=== PATIENT | male | born 1955 | race Caucasian/White ===

== ENCOUNTER 2018-06-05 13:55 | Inpatient (IN) | payer MEDICARE, OTHER, SELFPAY ==
[2018-06-05] VITALS (10 sets, daily range): BP systolic 96–124; BP diastolic 51–66; PULSE 82–90; RESP 18–20; TEMP 36.1–37; O2SAT 92–99; BMI 47.9
--- NOTE | 2018-06-05 14:00 | ED.GIBLEED ---
HPI - GI Bleed General Chief complaint: Dizziness Stated complaint: dark stool x2 days Time Seen by Provider: 06/05/18 14:00 Source: patient Mode of arrival: ambulatory Limitations: no limitations History of Present Illness HPI Narrative: Patient is a 62-year-old insulin-dependent diabetic male here for evaluation of black tarry stools for the past couple days and then feeling weak and lightheaded today. Patient states that he also thought that he had 1 episode of coffee-ground emesis yesterday but was unsure about this. States he has never had anything like this before. Has had a colonoscopy in the past. He thinks that his last 1 was about 5 years ago. He states that he was told that he has had polyps. Is taking Naprosyn 2 times a day for an extended period of time. No prior cardiac history or history of blood transfusions Related Data Home Medications Medication Instructions Recorded Confirmed Cranberry/D-Mannose 1 tab PO DAILY 06/05/18 aspirin 81 mg PO DAILY 06/05/18 06/05/18 atorvastatin 80 mg PO DAILY 06/05/18 06/05/18 ferrous sulfate [Iron (ferrous 325 mg PO DAILY 06/05/18 06/05/18 sulfate)] insulin glargine [Lantus Solostar 80 unit SUB-Q DAILY 06/05/18 06/05/18 U-100 Insulin] levothyroxine [Synthroid] 175 mcg PO DAILY 06/05/18 06/05/18 metformin 100 mg PO BID 06/05/18 06/05/18 naproxen 500 mg PO BID PRN 06/05/18 06/05/18 Allergies Allergy/AdvReac Type Severity Reaction Status Date / Time No Known Drug Allergies Allergy Verified 06/05/18 14:02 Review of Systems Constitutional Reports fatigue, Denies fever(s), Denies headache(s) and Reports malaise ENT Ears, Nose, Mouth, and Throat: Denies headache(s) Cardiovascular Denies chest pain, Denies palpitations and Denies dyspnea Respiratory Denies dyspnea Genitourinary Denies dysuria Musculoskeletal Denies myalgias and Denies arthralgias Integumentary/Breasts Denies pruritus and Denies rash Neurologic Denies headache(s) Endocrine Reports fatigue and Denies palpitations Hematologic/Lymphatic Denies easy bleeding and Denies easy bruising [facility] Medical History Diabetes (Acute) Hypothyroid (Acute) Surgical History Hx of appendectomy (Acute) Exam Initial Vital Signs Initial Vital Signs: Vital Signs Temperature 97.0 F L 06/05/18 14:00 Pulse Rate 82 06/05/18 14:00 Respiratory Rate 20 06/05/18 14:00 Pulse Oximetry 94 06/05/18 14:00 Const General: cooperative, comfortable, well developed, well groomed and No acute distress Orientation: alert, awake and oriented x3 HENMT Head: normal to inspection and normocephalic Resp Effort & Inspection: normal respiratory effort Auscultation: clear to auscultation bilaterally Cardio Rate: regular rate Rhythm: regular rhythm Pulses: radial pulses present GI Inspection: non-distended Palpation: soft and No firm Rectal Exam: heme positive stool Skin Lesions: no lesions Rashes: no rashes Other: Pale Neuro General: alert, awake and oriented x3 Extrem General: normal to inspection and capillary refill normal Psych Appearance: grossly normal and well kempt Course Orders Ordered: ED Orders 06/05/18 14:40 Complete Blood Count AUTO DIFF Stat Comprehensive Metabolic Panel Stat Lactate (Lactic Acid) Stat Partial Thromboplastin Time Stat Prothrombin Time INR Stat Type and Screen Stat Pantoprazole Sodium 80 mg/ (Sodium Chloride) 100 mls @ 10 mls/hr IV NOW ONE Stop: 06/06/18 00:16 Last Admin: 06/05/18 14:36 Dose: Not Given Pantoprazole Sodium 80 mg/ (Sodium Chloride) 100 mls @ 10 mls/hr IV CONT DENNIS Last Admin: 06/05/18 14:33 Dose: 8 mg/hr, 10 mls/hr Vital Signs - 8 hr 06/05/18 14:00 06/05/18 15:06 06/05/18 15:46 Temperature 97.0 F L Pulse Rate 82 87 Respiratory Rate 20 20 Blood Pressure [Left Wrist] 96/52 L 108/55 L Pulse Oximetry 94 92 MDM - GI Bleed Lab Data Attestation: I reviewed the patient's lab results. Result diagrams: 06/05/18 14:40 06/05/18 14:40 Lab Results 06/05/18 06/05/18 06/05/18 Range/Units 14:40 14:40 14:40 WBC 8.7 (4.5-11.0) X10^3/uL RBC 2.76 L (4.5-5.9) X10^6/uL Hgb 8.5 L (13.5-17.5) g/dL Hct 25.2 L (41-53) % MCV 91.5 (80-100) fL MCH 30.7 (26-34) PG MCHC 33.6 (30-36) % RDW 15.2 H (11.6-14.8) % Plt Count 122 L (150-400) X10^3/uL Neut % (Auto) 71.5 (50-75) % Lymph % (Auto) 17.7 L (25-40) % Garza % (Auto) 9.1 (3-14) % Eos % (Auto) 0.7 L (2-4) % Baso % (Auto) 1.0 (0-2) % Neut # (Auto) 6200 H (0268-4785) /uL PT 14.4 H (10.1-12.7) SECONDS INR 1.3 (0.9-1.3) APTT 25 L (26.4-36.2) SECONDS Sodium 135 L (137-145) mmol/L Potassium 6.0 H (3.4-5.1) mmol/L Chloride 99 (98-107) mmol/L Carbon Dioxide 22 (22-32) mmol/L BUN 88 H (9-20) mg/dL Creatinine 1.50 H (0.66-1.25) mg/dL Estimated GFR 47.1 L (>60) mL/min BUN/Creatinine Ratio 58.7 H (6-22) Glucose 483 H (80-110) mg/dL Lactate (0.7-2.1) mmol/L Calcium 9.1 (8.4-10.2) mg/dL Total Bilirubin 0.7 (0.2-1.3) mg/dL AST 34 (17-59) IU/L ALT 28 (21-72) IU/L Alkaline Phosphatase 59 (38-126) U/L Total Protein 5.5 L (6.3-8.2) g/dL Albumin 3.0 L (3.5-5.0) g/dL Globulin 2.5 (1.7-4.1) g/dL Albumin/Globulin Ratio 1.2 (1.0-2.8) 06/05/18 Range/Units 14:40 WBC (4.5-11.0) X10^3/uL RBC (4.5-5.9) X10^6/uL Hgb (13.5-17.5) g/dL Hct (41-53) % MCV (80-100) fL MCH (26-34) PG MCHC (30-36) % RDW (11.6-14.8) % Plt Count (150-400) X10^3/uL Neut % (Auto) (50-75) % Lymph % (Auto) (25-40) % Garza % (Auto) (3-14) % Eos % (Auto) (2-4) % Baso % (Auto) (0-2) % Neut # (Auto) (2643-4998) /uL PT (10.1-12.7) SECONDS INR (0.9-1.3) APTT (26.4-36.2) SECONDS Sodium (137-145) mmol/L Potassium (3.4-5.1) mmol/L Chloride (98-107) mmol/L Carbon Dioxide (22-32) mmol/L BUN (9-20) mg/dL Creatinine (0.66-1.25) mg/dL Estimated GFR (>60) mL/min BUN/Creatinine Ratio (6-22) Glucose (80-110) mg/dL Lactate 5.3 H (0.7-2.1) mmol/L Calcium (8.4-10.2) mg/dL Total Bilirubin (0.2-1.3) mg/dL AST (17-59) IU/L ALT (21-72) IU/L Alkaline Phosphatase (38-126) U/L Total Protein (6.3-8.2) g/dL Albumin (3.5-5.0) g/dL Globulin (1.7-4.1) g/dL Albumin/Globulin Ratio (1.0-2.8) MDM Narrative Medical decision making narrative: Patient with heme-positive stools. Also anemic. Patient is somewhat hypotensive but he states that this is baseline for him. He does have pale skin. Has a very benign abdominal exam. No cardiac history. Was started on Protonix here in the ER. Does have an elevated lactate. Was also getting fluids. Discussed the case with Dr. Eduardo who was on-call for General surgery who states that patient needs to be medically managed 1st. Discussed the case with Dr. Calvillo who accepts patient for admission. Patient is also hyperglycemic however no signs of DKA. This appears to be normal for him could see states that him and his provider have had problems maintaining his blood sugars. I discussed admission with the patient. He expressed understanding and agreement with plan. Discharge Plan Departure Patient Disposition: Admitted As Inpatient Clinical Impression: GI bleed, Hyperglycemia, Anemia Admit Date/Time: 06/05/18 15:56 Admit Provider: Jona Rojas
[2018-06-05] MEDS: PANTOPRAZOLE 80 MG in SODIUM CHLORIDE 0.9% 100 ML 10 ML IV (14:33)
[2018-06-05 14:57] LABS: Add Manual Diff / Slide Review NO; Eosinophils Percent Auto 0.7 % (2-4); Hematocrit 25.2 % (41-53); Hemoglobin 8.5 g/dL (13.5-17.5); Lymphocytes Percent Auto 17.7 % (25-40); Mean Corpuscular HGB Conc 33.6 % (30-36); Mean Corpuscular Hemoglobin 30.7 PG (26-34); Mean Corpuscular Volume 91.5 fL (80-100); Monocytes Percent Auto 9.1 % (3-14); Neutrophils Absolute Auto 6200 /uL (3000-5900); Neutrophils Percent Auto 71.5 % (50-75); Platelet Count 122 X10^3/uL (150-400); Red Blood Cell Count 2.76 X10^6/uL (4.5-5.9); Red Cell Distribution Width 15.2 % (11.6-14.8); White Blood Cell Count 8.7 X10^3/uL (4.5-11.0)
[2018-06-05 15:03] LABS: INR 1.3 (0.9-1.3); Prothrombin Time 14.4 SECONDS (10.1-12.7)
[2018-06-05 15:05] LABS: PTT Partial Thromboplastin Tim 25 SECONDS (26.4-36.2)
[2018-06-05 15:15] LABS: Lactate (Lactic Acid) 5.3 mmol/L (0.7-2.1)
[2018-06-05 15:16] LABS: Alanine Aminotransferase 28 IU/L (21-72); Albumin Globulin Ratio 1.2 (1.0-2.8); Alkaline Phosphatase 59 U/L (38-126); Aspartate Aminotransferase 34 IU/L (17-59); BUN Creatinine Ratio 58.7 (6-22); Bilirubin Total 0.7 mg/dL (0.2-1.3); Blood Urea Nitrogen 88 mg/dL (9-20); Calcium 9.1 mg/dL (8.4-10.2); Carbon Dioxide 22 mmol/L (22-32); Chloride 99 mmol/L (98-107); Estimated Glomerular Filt Rate 47.1 mL/min (>60); Globulin 2.5 g/dL (1.7-4.1); Glucose 483 mg/dL (80-110); HEMOLYSIS < 15 (0-50); Sodium 135 mmol/L (137-145); Total Protein 5.5 g/dL (6.3-8.2)
--- NOTE | 2018-06-05 16:56 | PM.HP.1 ---
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[facility] came to the ER because of 2 days history of black stools he also had an episode of coffee-ground emesis last night He has had water drinker since then but has no further emesis does not complain of any abdominal pain fever chills or rigors He was on Lantus and [place] but the [facility] but decided to go for cheaper medication and and he ended up with poor control of his diabetes according to him No cough phlegm or shortness of breath no chest pain reported Patient History Medical History Diabetes (Acute) Hypothyroid (Acute) Surgical History Hx of appendectomy (Acute) Family & Social History Family History: Reviewed 06/05/18 by Jona Rojas MD Social History: Lives alone was in the past not anymore Safety & Behavioral: Does not smoke tobacco or drink alcohol Comment: Both his parents are now father at the age of 47 with valvular heart problem mother at the age of 69 with cancer of the lymph node sister of an aortic aneurysm Meds Home Medications Medication Instructions Recorded Confirmed Type Cranberry/D-Mannose 1 tab PO DAILY 06/05/18 History aspirin 81 mg PO DAILY 06/05/18 06/05/18 History atorvastatin 80 mg PO DAILY 06/05/18 06/05/18 History ferrous sulfate [Iron (ferrous 325 mg PO DAILY 06/05/18 06/05/18 History sulfate)] insulin glargine [Lantus Solostar 80 unit SUB-Q DAILY 06/05/18 06/05/18 History U-100 Insulin] levothyroxine [Synthroid] 175 mcg PO DAILY 06/05/18 06/05/18 History metformin 100 mg PO BID 06/05/18 06/05/18 History naproxen 500 mg PO BID PRN 06/05/18 06/05/18 History Allergies Allergy/AdvReac Type Severity Reaction Status Date / Time No Known Drug Allergies Allergy Verified 06/05/18 14:02 Review of Systems Review of Systems A 12 point review of system was negative for any acute symptoms other than the 1 in the present complaint Exam Vital Signs (past 8 hours): - 06/05/18 14:00 06/05/18 15:06 06/05/18 15:46 Temperature 97.0 F L Pulse Rate 82 87 Respiratory Rate 20 20 Blood Pressure [Left Wrist] 96/52 L 108/55 L Pulse Oximetry 94 92 06/05/18 16:37 Temperature Pulse Rate 90 Respiratory Rate 20 Blood Pressure [Left Wrist] 105/56 L Pulse Oximetry 97 Oxygen Delivery Method Room Air Const General: cooperative, healthy appearing, comfortable and well developed Nutritional Appearance: overweight Orientation: alert, awake and oriented x3 HENMT Head: normal to inspection, normocephalic and atraumatic Ears: hearing grossly normal bilaterally Nose: external nose normal Face and sinus: normal facial exam Mouth: oral mucosae normal Eyes Eyelids: eyelids normal Conjunctivae: conjunctivae normal Sclera: sclerae normal EOM: EOM intact bilaterally Neck Neck: normal visual inspection, full ROM and No JVD Thyroid: thyroid normal Resp Effort & Inspection: normal respiratory effort, able to speak in complete sentences, no respiratory distress and no use of accessory muscles Auscultation: clear to auscultation bilaterally Cardio Palpation: normal PMI Rate: regular rate Rhythm: regular rhythm Heart Sounds: S1 normal and S2 normal GI Inspection: normal to inspection Palpation: soft and no hepatosplenomegaly Skin General: no rashes or lesions noted Neuro General: alert, awake, oriented x3 and no meningeal signs Cranial Nerves: CN's II-XI intact bilaterally Cognition: normal cognition Speech: speech normal Motor: muscle tone normal throughout Extrem Other: ELLIE; LE CHRONIC STASIS DERMATITIS PRESENT RT LE SHINY SKIN MINIMAL REDNESS Psych Appearance: grossly normal Mood: congruent mood Affect: normal affect Attitude: cooperative Thought Process: normal Thought Content: normal Judgment: judgment good Objective Labs Result Diagrams: 06/05/18 14:40 06/05/18 14:40 Labs: Laboratory Results - last 24 hr 06/05/18 06/05/18 06/05/18 14:40 14:40 14:40 WBC 8.7 RBC 2.76 L Hgb 8.5 L Hct 25.2 L MCV 91.5 MCH 30.7 MCHC 33.6 RDW 15.2 H Plt Count 122 L Neut % (Auto) 71.5 Lymph % (Auto) 17.7 L [facility] % (Auto) 9.1 Eos % (Auto) 0.7 L Baso % (Auto) 1.0 Neut # (Auto) 6200 H PT 14.4 H INR 1.3 APTT 25 L Sodium 135 L Potassium 6.0 H Chloride 99 Carbon Dioxide 22 BUN 88 H Creatinine 1.50 H Estimated GFR 47.1 L BUN/Creatinine Ratio 58.7 H Glucose 483 H Lactate Calcium 9.1 Total Bilirubin 0.7 AST 34 ALT 28 Alkaline Phosphatase 59 Total Protein 5.5 L Albumin 3.0 L Globulin 2.5 Albumin/Globulin Ratio 1.2 Blood Type Antibody Screen 06/05/18 06/05/18 14:40 14:40 WBC RBC Hgb Hct MCV MCH MCHC RDW Plt Count Neut % (Auto) Lymph % (Auto) [facility] % (Auto) Eos % (Auto) Baso % (Auto) Neut # (Auto) PT INR APTT Sodium Potassium Chloride Carbon Dioxide BUN Creatinine Estimated GFR BUN/Creatinine Ratio Glucose Lactate 5.3 H Calcium Total Bilirubin AST ALT Alkaline Phosphatase Total Protein Albumin Globulin Albumin/Globulin Ratio Blood Type A Positive Antibody Screen Negative Assessment & Plan Plan: Assessment/Plan Narrative: 1. ACUTE POST HEMORRHAGIC ANEMIA UPPER GI BLEEDING WITH A HEMOGLOBIN OF 8.5 NOW WILL MONITOR THE HEMOGLOBIN Q.6 HOURS HOURLY AND TRANSFUSE IF IT IS BELOW 7 DR. MASR FROM GENERAL SURGERY HAS BEEN INFORMED FROM THE ER AND WILL DO ENDOSCOPY ONCE THE METABOLIC CHANGES OF BEING CORRECTED 2. DIABETES MELLITUS UNCONTROLLED SUGAR 480 IN ER NOT IN ANY DISTRESS NO DKA WILL USE IV INSULIN ONCE AND THEN SUBCUTANEOUS INSULIN BOTH BASAL AND BOLUS 3. HYPERKALEMIA POTASSIUM OF 6.0 TREAT WITH CALCIUM GLUCONATE AND IV BICARB 4. AZOTEMIA WITH A BUN OF 88 MOST LIKELY SECONDARY TO GI BLEED 5. ACUTE KIDNEY INJURY CREATININE 1.6 WILL CORRECT WITH IV HYDRATION 6. LACTIC ACIDOSIS URINE BEING CHECKED FOR YOU URINARY TRACT INFECTION RIGHT LOWER EXTREMITY MAY BE EARLY CELLULITIS WILL START THE ZOSYN 7. OBESITY Time Spent With Patient Time with patient: Greater than 35 minutes
--- NOTE | 2018-06-05 18:05 | P.CONS_ITS ---
History of Present Illness Date Patient Seen: 06/05/18 Time Patient Seen: 17:49 Chief complaint: dark stool x2 days Reason for consult: Melena Requesting provider: Jona Rojas Narrative: 62-year-old diabetic morbidly obese male who presented to the emergency department with some lightheadedness over the last 24-48 hours and 2 day history of associated melena. He also had 1 episode yesterday evening of hematemesis that he describes as coffee-ground in nature. No nausea or vomiting prior or since that episode. He has not had any stool today. However , he describes his stool in the last 2 days as black and tarry. He has had no abdominal pain. No diarrhea. No difficulties with defecation. No pain with passage of stool. Denies any dysuria or hematuria. His appetite has been normal and he was tolerating a diet without any significant issues. Of note, he takes scheduled Naprosyn at twice daily for shoulder pain and has done so for a considerable time now. He also takes baby aspirin once daily. Denies any other NSAID use. He admits that his diabetes has been poorly controlled since changing his medication regimen in recent months. He has had some mild polydipsia over the last 2-3 days. Denies any prior episodes of gastrointestinal hemorrhage although he does have documented anemia in 2015 for which she underwent extensive evaluation including bone marrow biopsy. Prior EGD and colonoscopy in 2014 were essentially unremarkable as well other than tubular adenoma in the colon and mild gastritis. He was found to be significantly anemic in the emergency department this afternoon and surgical consultation is now obtained. 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) Osteoarthritis (Acute) Personal history of colonic polyps (Acute) Splenomegaly (Acute) Symptomatic anemia (Acute) Surgical History H/O transurethral destruction of bladder lesion (Acute) History of bone marrow biopsy (Acute) History of colonoscopy (Acute) History of esophagogastroduodenoscopy (EGD) (Acute) Hx of appendectomy (Acute) Social History household members: none Smoking Status: Former smoker alcohol intake: never Comment: Nonsmoker Primary care received through the [facility] Medications Medication Instructions Recorded Confirmed Type Cranberry/D-Mannose 1 tab PO DAILY 06/05/18 History aspirin 81 mg PO DAILY 06/05/18 06/05/18 History atorvastatin 80 mg PO DAILY 06/05/18 06/05/18 History ferrous sulfate [Iron (ferrous 325 mg PO DAILY 06/05/18 06/05/18 History sulfate)] insulin glargine [Lantus Solostar 80 unit SUB-Q DAILY 06/05/18 06/05/18 History U-100 Insulin] levothyroxine [Synthroid] 175 mcg PO DAILY 06/05/18 06/05/18 History metformin 100 mg PO BID 06/05/18 06/05/18 History naproxen 500 mg PO BID PRN 06/05/18 06/05/18 History Allergies Allergy/AdvReac Type Severity Reaction Status Date / Time No Known Drug Allergies Allergy Verified 06/05/18 14:02 Review of Systems Constitutional Constitutional: Denies chills, Denies fever(s), Denies poor appetite, Denies weight gain and Denies weight loss Eyes Eyes: Denies irritation, Denies itchy eyes and Denies other visual disturbances ENT Ears, Nose, Mouth, and Throat: No difficulty swallowing, Yes dizziness and No pain with swallowing Cardiovascular Cardiovascular: Denies chest pain with activity, Denies rapid, pounding, or irregular heartbeat and Denies shortness of breath Respiratory Respiratory: Denies dyspnea and Denies wheezing Gastrointestinal Gastrointestinal: Reports as per HPI, Denies dysphagia and Denies odynophagia Genitourinary Genitourinary: Reports as per HPI Musculoskeletal Musculoskeletal: Reports arthralgias (Chronic shoulder pain), Reports joint swelling and Denies tingling Integumentary/Breasts Skin/Breast: Denies rash, Denies skin ulcer and Denies jaundice Neurologic Neurologic: Reports dizziness and Denies tingling Psychiatric Psychiatric: Denies anxiety and Denies depression Endocrine Endocrine: Reports polydipsia, Denies palpitations and Reports other (Known diabetes) Hematologic/Lymphatic Hematologic/Lymphatic: Denies easy bleeding and Denies easy bruising Allergic/Immunologic Allergic/Immunologic: Denies itchy eyes and Denies wheezing Exam Vital Signs (past 8 hours): - 06/05/18 14:00 06/05/18 15:06 06/05/18 15:46 Temperature 97.0 F L Pulse Rate 82 87 Respiratory Rate 20 20 Blood Pressure [Left Wrist] 96/52 L 108/55 L Pulse Oximetry 94 92 06/05/18 16:37 06/05/18 17:19 Temperature Pulse Rate 90 83 Respiratory Rate 20 18 Blood Pressure [Left Wrist] 105/56 L 108/52 L Pulse Oximetry 97 95 Oxygen Delivery Method Room Air Narrative Exam Narrative: Obese male lying comfortably on the gurney in the emergency department in no acute distress. Alert oriented x3 Sclera nonicteric Neck is supple Regular rate and rhythm Abdomen is obese but soft and completely nondistended. Nontender. No masses. No hepatomegaly. Extremities show no clubbing or cyanosis. Has chronic hyperpigmentation of bilateral pretibial areas almost circumferentially around the calves consistent with diabetes and venous insufficiency. Rectal examination is deferred per patient choice. Colonoscopy was performed 2014 with findings as above. Objective Labs Result Diagrams: 06/05/18 14:40 06/05/18 14:40 Labs: Laboratory Results - last 24 hr 06/05/18 06/05/18 06/05/18 14:40 14:40 14:40 WBC 8.7 RBC 2.76 L Hgb 8.5 L Hct 25.2 L MCV 91.5 MCH 30.7 MCHC 33.6 RDW 15.2 H Plt Count 122 L Neut % (Auto) 71.5 Lymph % (Auto) 17.7 L [place] % (Auto) 9.1 Eos % (Auto) 0.7 L Baso % (Auto) 1.0 Neut # (Auto) 6200 H PT 14.4 H INR 1.3 APTT 25 L Sodium 135 L Potassium 6.0 H Chloride 99 Carbon Dioxide 22 BUN 88 H Creatinine 1.50 H Estimated GFR 47.1 L BUN/Creatinine Ratio 58.7 H Glucose 483 H Lactate Calcium 9.1 Total Bilirubin 0.7 AST 34 ALT 28 Alkaline Phosphatase 59 Total Protein 5.5 L Albumin 3.0 L Globulin 2.5 Albumin/Globulin Ratio 1.2 Blood Type Antibody Screen 06/05/18 06/05/18 14:40 14:40 WBC RBC Hgb Hct MCV MCH MCHC RDW Plt Count Neut % (Auto) Lymph % (Auto) [place] % (Auto) Eos % (Auto) Baso % (Auto) Neut # (Auto) PT INR APTT Sodium Potassium Chloride Carbon Dioxide BUN Creatinine Estimated GFR BUN/Creatinine Ratio Glucose Lactate 5.3 H Calcium Total Bilirubin AST ALT Alkaline Phosphatase Total Protein Albumin Globulin Albumin/Globulin Ratio Blood Type A Positive Antibody Screen Negative No recent radiographic studies review. Study of December [address] scan of the abdomen and pelvis is personally reviewed. Findings are consistent with steatosis and splenomegaly as above. No lymphadenopathy at that time. Assessment & Plan Plan: Assessment/Plan Narrative: 62-year-old male with multiple comorbid medical conditions who presents with probable upper gastrointestinal hemorrhage likely related to NSAID use. He currently has no evidence of significant active hemorrhage or hemodynamic instability. He will therefore be admitted per the internal medicine service for IV fluid resuscitation, correction of his acidosis, and aggressive diabetic control. Continue to monitor his H&H. Transfuse as indicated. Agree that he will require EGD at some point this admission once he is more stable and fully resuscitated. He understands that there is a small possibility we may have to do this emergently if he begins to have significant active hemorrhage. In the interim he has been placed on proton pump inhibitor infusion. NPO currently. I discussed the technical details of EGD. He is familiar with the procedure from 2014. All questions were answered to his satisfaction, and he voiced understanding. We will continue to follow him during this admission.
[2018-06-05] MEDS: INSULIN ASPART 100 UNIT/ML INSULN PEN 15 UNIT SUBCUT (18:17)
[2018-06-05 18:51] LABS: Reflexed Lactate in 2 Hours Y
[2018-06-05 18:58] LABS: Hematocrit 25.4 % (41-53); Hemoglobin 8.4 g/dL (13.5-17.5)
[2018-06-05] MEDS: SODIUM CHLORIDE 0.45% IV (19:01)
[2018-06-05] MEDS: SODIUM BICARB IV (19:01)
[2018-06-05] MEDS: PIPERACILLIN-TAZO 3.375 GM/50 ML FROZ.PIGGY IV (19:08)
[2018-06-05 19:13] LABS: Lactate 2HR (Lactic Acid Rflx) 4.8 mmol/L (0.7-2.1)
--- NOTE | 2018-06-05 19:44 | PC.NURSE ---
patient up to room via stretcher, iv meds infusing as ordered. o2 sat is 95% on 1L with cpap machine. lung sounds clear, heart sounds regular, bowel tones present. patient denies nausea, dizziness, sob. patient denies pain; states he normally deals with chronic shoulder pain and takes naproxen at home. patient had black tarry, formed stool in br and voided successfully. skin is intact, patient denies tingling or numbness. patient is a&ox4. patient able to ambulate to br sba without walker. blood glucose at 1800 was over 500 on glucometer, gave 15 units one time now as ordered, rechecked 45 minutes later and glucose was still over 500, ordered stat lab check per protocol. reported all this to Dr. Calvillo; asked this RN to call back with exact number once done. patient oriented to room, is NPO at this time. call light in reach. will continue to monitor.
[2018-06-05 20:22] LABS: Glucose 516 mg/dL (80-110)
[2018-06-05] MEDS: CALCIUM GLUCONATE 4.65 MEQ in SODIUM CHLORIDE 0.9% 50 ML 120 ML IV (20:30)
[2018-06-05] MEDS: SODIUM CHLORIDE 0.9% 500 ML 1000 ML IV (21:18)
[2018-06-05] MEDS: INSULIN REGULAR, HUMAN 100 UNIT in SODIUM CHLORIDE 0.9% 100 ML 6 ML IV (21:20)
--- NOTE | 2018-06-05 22:33 | PC.NURSE ---
Pt transfer from Acute care. Finger stick >452. Protonix gtt, NS bolus and Bi-carb infusing. Pt c/o only of chronic Right shoulder pain. Offered pillow for comfort. Oriented to room and treatment plan. Maria Del Rosario Sullivan attempt to draw second blood culture and lipase as ordered. Unable to obtain adequate amount of blood for sampling. 2 PIV sites to right forearm fluids infusing as ordered. Call light in reach. Monitor. 2129 - Insulin gtt initiated once obtained from night pharmacy at 6 units/hr as ordered. 2199 - Dr. Calvillo called to review pt orders. Orders written on physician order form, variation in orders following lab results. BG per finger stick >485. Insulin gtt at 6 units/hr, not titrated on this check r/t 2129 gtt start time. Monitor.
[2018-06-06] VITALS (8 sets, daily range): BP systolic 106–123; BP diastolic 47–50; PULSE 72–91; RESP 15–20; TEMP 36.3–37.1; O2SAT 94–97
[2018-06-06] MEDS: PANTOPRAZOLE 80 MG in SODIUM CHLORIDE 0.9% 100 ML 10 ML IV ×2 (00:02→22:24)
[2018-06-06] MEDS: ACETAMINOPHEN 325 MG TABLET 650 MG PO (00:36)
[2018-06-06] MEDS: PIPERACILLIN-TAZO 3.375 GM/50 ML FROZ.PIGGY IV ×4 (00:36→19:20)
[2018-06-06 00:56] LABS: Hematocrit 23.2 % (41-53); Hemoglobin 7.8 g/dL (13.5-17.5)
[2018-06-06 00:57] LABS: HEMOLYSIS < 15 (0-50); Potassium 4.9 mmol/L (3.4-5.1)
[2018-06-06] MEDS: INSULIN REGULAR, HUMAN 100 UNIT in SODIUM CHLORIDE 0.9% 100 ML 24 ML IV (03:14)
[2018-06-06] MEDS: DEXTROSE 5%-0.45% NS 1,000 ML 75 ML IV (05:36)
[2018-06-06] MEDS: LEVOTHYROXINE 75 MCG TABLET PO (06:42)
[2018-06-06] MEDS: LEVOTHYROXINE 100 MCG TABLET PO (06:42)
--- NOTE | 2018-06-06 06:56 | PC.NURSE ---
Patient A/O x3, insulin gtt continued through night, started at 12units/hr, increased to 28units/hr, then able to titrate down to 7units/hr by am, see flow sheet. Bicarb infused until 0500 then changed to D5 1/2NS per order when BG < 200. Protonix gtt, IV Zosyn per schedule. No s/s bleeding, no nausea, Tylenol given with sip for chronic shoulder pain.
[2018-06-06 07:01] LABS: Hematocrit 23.2 % (41-53); Hemoglobin 7.9 g/dL (13.5-17.5)
[2018-06-06 07:05] LABS: Alanine Aminotransferase 35 IU/L (21-72); Albumin Globulin Ratio 1.2 (1.0-2.8); Alkaline Phosphatase 57 U/L (38-126); Aspartate Aminotransferase 30 IU/L (17-59); BUN Creatinine Ratio 55.6 (6-22); Bilirubin Total 0.5 mg/dL (0.2-1.3); Blood Urea Nitrogen 89 mg/dL (9-20); Calcium 9.5 mg/dL (8.4-10.2); Carbon Dioxide 28 mmol/L (22-32); Chloride 106 mmol/L (98-107); Estimated Glomerular Filt Rate 43.7 mL/min (>60); Globulin 2.6 g/dL (1.7-4.1); Glucose 162 mg/dL (80-110); HEMOLYSIS < 15 (0-50); Lipase 181 U/L (23-300); Potassium 4.6 mmol/L (3.4-5.1); Sodium 142 mmol/L (137-145); Total Protein 5.6 g/dL (6.3-8.2)
[2018-06-06] MEDS: INSULIN GLARGINE 100 UNIT/ML 3ML PEN 40 UNIT SUBCUT ×2 (08:50→08:56)
--- NOTE | 2018-06-06 08:57 | PC.NURSE ---
Addendum entered by Isabela Becker R.N. 06/06/18 11:40: Dr Calvillo called to inform of patients 1130 blood glucose of 236, per MD request. Continue with the ordered sliding scale and keep insulin drip off at this time. Original Note: Addendum entered by Isabela Becker R.N. 06/06/18 10:05: Blood glucose finger stick 188, insulin drip stopped as ordered. Original Note: Pt alert, oriented up to chair, gait steady. Dr Calvillo in to see patient, given 80 units of lantus as ordered and will discontinue insulin drip in an hour as ordered.
[2018-06-06 08:58] LABS: Lactate (Lactic Acid) 2.6 mmol/L (0.7-2.1)
[2018-06-06] MEDS: DEXTROSE 5%-0.45NS W/KCL 20MEQ 1,000 ML 75 MEQ IV (09:35)
[2018-06-06] MEDS: INSULIN ASPART 100 UNIT/ML INSULN PEN SUBCUT ×2 (11:45→18:06)
[2018-06-06] MEDS: PANTOPRAZOLE 80 MG in SODIUM CHLORIDE 0.9% 100 ML 12.5 ML IV (12:12)
[2018-06-06 12:37] LABS: Reflexed Lactate in 2 Hours Y
[2018-06-06 13:31] LABS: Hematocrit 23.7 % (41-53); Hemoglobin 7.7 g/dL (13.5-17.5)
[2018-06-06 13:38] LABS: BUN Creatinine Ratio 62.3 (6-22); Blood Urea Nitrogen 81 mg/dL (9-20); Calcium 9.1 mg/dL (8.4-10.2); Carbon Dioxide 30 mmol/L (22-32); Chloride 105 mmol/L (98-107); Estimated Glomerular Filt Rate 55.6 mL/min (>60); Glucose 245 mg/dL (80-110); HEMOLYSIS 27 (0-50); Sodium 142 mmol/L (137-145)
[2018-06-06 13:41] LABS: Potassium 5.4 mmol/L (3.4-5.1)
--- NOTE | 2018-06-06 14:10 | P.PN_ITS ---
Subjective Date Patient Seen: 06/06/18 Time Patient Seen: 14:09 Interval history: THIS 62-YEAR-OLD GENTLEMAN IS ADMITTED FROM HOME WITH A HISTORY OF MELENA STOOLS FOR 1 DAY HE ALSO HAD A HEMATEMESIS ON 1 OCCASION FOLLOWING THAT HE HAS BEEN DRINKING WATER AND HAS NOT HAD ANY FURTHER EMESIS HE ALSO HAS DIABETES IS DIFFICULT TO CONTROL HAS BEEN ON LARGE DOSES OF INSULIN THE CHARGE GROUP THAT HELPS HIM WITH HIS MEDICATION COST TRY TO GET HIM ON A LONG-ACTING INSULIN THAT IS TAKEN ON A WEEKLY BASIS BUT SINCE HE HAD THAT HIS BLOOD SUGARS HAVE GONE REALLY HIGH AND YESTERDAY IN THE IN THE ER WAS 516 HE HAS BEEN TREATED WITH IV INSULIN INFUSION AND HIS METABOLIC ABNORMALITIES HAVE BEEN CORRECTED HE HAD HYPERKALEMIA AND LACTIC ACIDOSIS AZOTEMIA LIKELY SECONDARY TO THE GI BLEED OVERALL HE REPORTS FEELING MUCH BETTER TODAY Exam Vital Signs (past 8 hours): - 06/06/18 07:38 06/06/18 09:29 06/06/18 11:42 Temperature 97.8 F 97.7 F Pulse Rate 75 82 Respiratory Rate 15 16 Blood Pressure 123/47 H 117/50 L Pulse Oximetry 94 97 97 Fraction of Inspired Oxygen 24 Oxygen Delivery Method Room Air Oxygen Flow Rate 0 Const General: cooperative, healthy appearing, comfortable and well developed Orientation: alert, awake and oriented x3 HENMT Head: normal to inspection, normocephalic and atraumatic Ears: hearing grossly normal bilaterally Nose: external nose normal Face and sinus: normal facial exam Mouth: oral mucosae normal Eyes General: appearance normal, both eyes and all related structures Eyelids: eyelids normal Conjunctivae: conjunctivae normal Sclera: sclerae normal Pupils: PERRL EOM: EOM intact bilaterally Neck Neck: normal visual inspection, full ROM and No JVD Resp Effort & Inspection: normal respiratory effort, able to speak in complete sentences, decreased respiratory effort, no respiratory distress and no use of accessory muscles Auscultation: clear to auscultation bilaterally Cardio Palpation: normal PMI Rate: regular rate Rhythm: regular rhythm Heart Sounds: S1 normal and S2 normal GI Inspection: normal to inspection Palpation: soft and no hepatosplenomegaly Skin General: no rashes or lesions noted Neuro General: alert, awake and oriented x3 Cranial Nerves: CN's II-XI intact bilaterally Cognition: normal cognition Speech: speech normal Gait: normal gait Motor: muscle tone normal throughout Extrem Other: NIL EDEMA Psych Appearance: grossly normal Mood: congruent mood Affect: normal affect Attitude: cooperative Thought Process: normal Thought Content: normal Judgment: judgment good Objective Labs Result Diagrams: 06/06/18 13:15 06/06/18 13:15 Labs: Laboratory Results - last 24 hr 06/05/18 06/05/18 06/05/18 14:40 14:40 14:40 WBC 8.7 RBC 2.76 L Hgb 8.5 L Hct 25.2 L MCV 91.5 MCH 30.7 MCHC 33.6 RDW 15.2 H Plt Count 122 L Neut % (Auto) 71.5 Lymph % (Auto) 17.7 L [place] % (Auto) 9.1 Eos % (Auto) 0.7 L Baso % (Auto) 1.0 Neut # (Auto) 6200 H PT 14.4 H INR 1.3 APTT 25 L Sodium 135 L Potassium 6.0 H Chloride 99 Carbon Dioxide 22 BUN 88 H Creatinine 1.50 H Estimated GFR 47.1 L BUN/Creatinine Ratio 58.7 H Glucose 483 H Lactate Calcium 9.1 Total Bilirubin 0.7 AST 34 ALT 28 Alkaline Phosphatase 59 Total Protein 5.5 L Albumin 3.0 L Globulin 2.5 Albumin/Globulin Ratio 1.2 Lipase Nasal Screen MRSA (PCR) Blood Type Antibody Screen 06/05/18 06/05/18 06/05/18 14:40 14:40 18:00 WBC RBC Hgb Hct MCV MCH MCHC RDW Plt Count Neut % (Auto) Lymph % (Auto) Cr[place] % (Auto) Eos % (Auto) Baso % (Auto) Neut # (Auto) PT INR APTT Sodium Potassium Chloride Carbon Dioxide BUN Creatinine Estimated GFR BUN/Creatinine Ratio Glucose Lactate 5.3 H 4.8 H Calcium Total Bilirubin AST ALT Alkaline Phosphatase Total Protein Albumin Globulin Albumin/Globulin Ratio Lipase Nasal Screen MRSA (PCR) Blood Type A Positive Antibody Screen Negative 06/05/18 06/05/18 06/05/18 18:40 18:40 20:50 WBC RBC Hgb 8.4 L Hct 25.4 L MCV MCH MCHC RDW Plt Count Neut % (Auto) Lymph % (Auto) [place] % (Auto) Eos % (Auto) Baso % (Auto) Neut # (Auto) PT INR APTT Sodium Potassium Chloride Carbon Dioxide BUN Creatinine Estimated GFR BUN/Creatinine Ratio Glucose 516 H* Lactate Calcium Total Bilirubin AST ALT Alkaline Phosphatase Total Protein Albumin Globulin Albumin/Globulin Ratio Lipase Nasal Screen MRSA (PCR) Negative for mrsa Blood Type Antibody Screen 06/06/18 06/06/18 06/06/18 00:42 00:42 06:35 WBC RBC Hgb 7.8 L 7.9 L Hct 23.2 L 23.2 L MCV MCH MCHC RDW Plt Count Neut % (Auto) Lymph % (Auto) [place] % (Auto) Eos % (Auto) Baso % (Auto) Neut # (Auto) PT INR APTT Sodium Potassium 4.9 Chloride Carbon Dioxide BUN Creatinine Estimated GFR BUN/Creatinine Ratio Glucose Lactate Calcium Total Bilirubin AST ALT Alkaline Phosphatase Total Protein Albumin Globulin Albumin/Globulin Ratio Lipase Nasal Screen MRSA (PCR) Blood Type Antibody Screen 06/06/18 06/06/18 06/06/18 06:35 08:30 13:15 WBC RBC Hgb 7.7 L Hct 23.7 L MCV MCH MCHC RDW Plt Count Neut % (Auto) Lymph % (Auto) [place] % (Auto) Eos % (Auto) Baso % (Auto) Neut # (Auto) PT INR APTT Sodium 142 Potassium 4.6 Chloride 106 Carbon Dioxide 28 BUN 89 H Creatinine 1.60 H Estimated GFR 43.7 L BUN/Creatinine Ratio 55.6 H Glucose 162 H D Lactate 2.6 H Calcium 9.5 Total Bilirubin 0.5 AST 30 ALT 35 Alkaline Phosphatase 57 Total Protein 5.6 L Albumin 3.0 L Globulin 2.6 Albumin/Globulin Ratio 1.2 Lipase 181 Nasal Screen MRSA (PCR) Blood Type Antibody Screen 06/06/18 06/06/18 13:15 13:15 WBC RBC Hgb Hct MCV MCH MCHC RDW Plt Count Neut % (Auto) Lymph % (Auto) [place] % (Auto) Eos % (Auto) Baso % (Auto) Neut # (Auto) PT INR APTT Sodium 142 Potassium 5.4 H Chloride 105 Carbon Dioxide 30 BUN 81 H Creatinine 1.30 H Estimated GFR 55.6 L BUN/Creatinine Ratio 62.3 H Glucose 245 H Lactate 2.0 Calcium 9.1 Total Bilirubin AST ALT Alkaline Phosphatase Total Protein Albumin Globulin Albumin/Globulin Ratio Lipase Nasal Screen MRSA (PCR) Blood Type Antibody Screen Assessment & Plan Plan: Assessment/Plan Narrative: 1. ACUTE POST HEMORRHAGIC ANEMIA UPPER GI BLEEDING WITH A HEMOGLOBIN OF 8.5 NOW WILL MONITOR THE HEMOGLOBIN Q.6 HOURS HOURLY AND TRANSFUSE IF IT IS BELOW 7 DR. MARS FROM GENERAL SURGERY HAS BEEN INFORMED FROM THE ER AND WILL DO ENDOSCOPY ONCE THE METABOLIC CHANGES OF BEING CORRECTED 2. DIABETES MELLITUS UNCONTROLLED SUGAR 480 IN ER WITH METABOLIC DERANGEMENTS ADMITTED TO ICU AND WAS ON IV INSULIN DRIP CURRENTLY REQUIRING 9 UNITS/HOUR TO KEEP THE BLOOD SUGARS IN THE 160-180 RANGE 3. HYPERKALEMIA POTASSIUM OF 6.0 AT ADMIT TREATED WITH CALCIUM GLUCONATE AND IV BICARB CAME DOWN TO 4.2 TODAY THIS A.M. HAS GONE UP AGAIN TO 5.4 MOST LIKELY BECAUSE OF SUPPLEMENT IN THE IV FLUIDS WILL DISCONTINUE THE IV SUPPLEMENT POTASSIUM 4. AZOTEMIA WITH A BUN OF 88 MOST LIKELY SECONDARY TO GI BLEED 5. LACTIC ACIDOSIS IMPROVED FROM 5.8-0.6 6. IS BEING TREATED WITH ZOSYN AND EVEN THOUGH HE NOT CLEAR ABOUT THE SOURCE OF THE INFECTION IN VIEW OF THE LACTIC ACID BEING HIGH IN BOTH LOWER EXTREMITIES BEING A CHRONIC DERMATITIS IN AND POSSIBILITY OF EARLY CELLULITIS IN THE RIGHT LOWER EXTREMITY 5. ACUTE KIDNEY INJURY HAS IMPROVED WITH IV HYDRATION CR 1.3 6. LACTIC ACIDOSIS URINE BEING CHECKED FOR YOU URINARY TRACT INFECTION RIGHT LOWER EXTREMITY MAY BE EARLY CELLULITIS WILL START THE ZOSYN 7. OBESITY Time Spent With Patient Time with patient: 25 - 35 minutes Quality VTE Deep Vein Thrombosis/Pulmonary Embolism Present on Admission: No
[2018-06-06] MEDS: DEXTROSE 5%-0.45% NS 1,000 ML 84 ML IV (14:24)
--- NOTE | 2018-06-06 15:16 | P.PN_ITS ---
Subjective Date Patient Seen: 06/06/18 Time Patient Seen: 12:00 Interval history: No nausea or vomiting. Denies any hematemesis. No further melena. He is currently quite hungry and wishes to eat. Blood sugars are now much better controlled following insulin drip last evening. He remains on sliding scale insulin currently. Hemoglobin has been stable but he remains significantly anemic. Denies chest pain or shortness of breath. No abdominal pain. Exam Vital Signs (past 8 hours): - 06/06/18 07:38 06/06/18 09:29 06/06/18 11:42 Temperature 97.8 F 97.7 F Pulse Rate 75 82 Respiratory Rate 15 16 Blood Pressure 123/47 H 117/50 L Pulse Oximetry 94 97 97 Fraction of Inspired Oxygen 24 Oxygen Delivery Method Room Air Oxygen Flow Rate 0 Narrative Exam Narrative: Obese male lying comfortably in bed in no acute distress. Alert oriented x3 He remains afebrile and hemodynamically stable with no tachycardia. Blood pressure is normal. Adequate urine output. Regular rate and rhythm Abdomen soft, nondistended, nontender, no masses Extremities show no clubbing or cyanosis. He has chronic edema bilateral lower extremities throughout the pretibial area. Objective Labs Result Diagrams: 06/06/18 13:15 06/06/18 13:15 Labs: Laboratory Results - last 24 hr 06/05/18 06/05/18 06/05/18 14:40 14:40 14:40 Hgb Hct Sodium 135 L Potassium 6.0 H Chloride 99 Carbon Dioxide 22 BUN 88 H Creatinine 1.50 H Estimated GFR 47.1 L BUN/Creatinine Ratio 58.7 H Glucose 483 H Lactate 5.3 H Calcium 9.1 Total Bilirubin 0.7 AST 34 ALT 28 Alkaline Phosphatase 59 Total Protein 5.5 L Albumin 3.0 L Globulin 2.5 Albumin/Globulin Ratio 1.2 Lipase Nasal Screen MRSA (PCR) Blood Type A Positive Antibody Screen Negative 06/05/18 06/05/18 06/05/18 18:00 18:40 18:40 Hgb 8.4 L Hct 25.4 L Sodium Potassium Chloride Carbon Dioxide BUN Creatinine Estimated GFR BUN/Creatinine Ratio Glucose 516 H* Lactate 4.8 H Calcium Total Bilirubin AST ALT Alkaline Phosphatase Total Protein Albumin Globulin Albumin/Globulin Ratio Lipase Nasal Screen MRSA (PCR) Blood Type Antibody Screen 06/05/18 06/06/18 06/06/18 20:50 00:42 00:42 Hgb 7.8 L Hct 23.2 L Sodium Potassium 4.9 Chloride Carbon Dioxide BUN Creatinine Estimated GFR BUN/Creatinine Ratio Glucose Lactate Calcium Total Bilirubin AST ALT Alkaline Phosphatase Total Protein Albumin Globulin Albumin/Globulin Ratio Lipase Nasal Screen MRSA (PCR) Negative for mrsa Blood Type Antibody Screen 06/06/18 06/06/18 06/06/18 06:35 06:35 08:30 Hgb 7.9 L Hct 23.2 L Sodium 142 Potassium 4.6 Chloride 106 Carbon Dioxide 28 BUN 89 H Creatinine 1.60 H Estimated GFR 43.7 L BUN/Creatinine Ratio 55.6 H Glucose 162 H D Lactate 2.6 H Calcium 9.5 Total Bilirubin 0.5 AST 30 ALT 35 Alkaline Phosphatase 57 Total Protein 5.6 L Albumin 3.0 L Globulin 2.6 Albumin/Globulin Ratio 1.2 Lipase 181 Nasal Screen MRSA (PCR) Blood Type Antibody Screen 06/06/18 06/06/18 06/06/18 13:15 13:15 13:15 Hgb 7.7 L Hct 23.7 L Sodium 142 Potassium 5.4 H Chloride 105 Carbon Dioxide 30 BUN 81 H Creatinine 1.30 H Estimated GFR 55.6 L BUN/Creatinine Ratio 62.3 H Glucose 245 H Lactate 2.0 Calcium 9.1 Total Bilirubin AST ALT Alkaline Phosphatase Total Protein Albumin Globulin Albumin/Globulin Ratio Lipase Nasal Screen MRSA (PCR) Blood Type Antibody Screen Assessment & Plan Plan: Assessment/Plan Narrative: 62-year-old male with uncontrolled diabetes and subsequent acidosis resulting in metabolic derangement now slowly correcting per the Internal Medicine service with IV fluid resuscitation and insulin. However, he remains anemic consistent with upper gastrointestinal hemorrhage. Fortunately he does not have evidence of ongoing significant hemorrhage. Nevertheless he does require upper endoscopy as previously documented. Continue proton pump inhibitor. Avoid NSAIDs until further notice. We will plan EGD with potential biopsy tomorrow in the operating room under anesthesia. I have discussed this with the patient. Technical details were reviewed. Risks, benefits, alternatives were discussed. Risks including but not limited to anesthesia, aspiration, bleeding , pain, missed lesion, recurrent bleeding despite successful intervention, esophageal perforation, gastric perforation, duodenal perforation, need for major thoracic surgery, need for major abdominal surgery, and all attendant risks of major surgery were explained in detail. All questions were answered to his satisfaction, and he voiced understanding. Consent was placed on the chart. We will proceed as above. Quality VTE Deep Vein Thrombosis/Pulmonary Embolism Present on Admission: No
--- NOTE | 2018-06-06 19:21 | PC.NURSE ---
geneva note Pt up in chair, independent in ADLs. Denies SOB of dizziness when standing to urinate. No stools.
[2018-06-06] MEDS: ATORVASTATIN 20 MG TABLET 80 MG PO (21:06)
[2018-06-07] VITALS (20 sets, daily range): BP systolic 102–143; BP diastolic 35–97; PULSE 63–78; RESP 12–63; TEMP 36.4–37.3; O2SAT 94–100; BMI 46.5
--- NOTE | 2018-06-07 | PATH_ITS ---
[facility] Accession Number: [id number] . 01 Material submitted: . ANTRAL BIOPSIES . 02 Diagnosis: Designated Antrum Biopsies: Gastric body mucosa with no diagnostic abnormality. No evidence of Helicobacter organisms on H/E stain. Negative for intestinal metaplasia, dysplasia or malignancy. MRV/06/08/2018 . 02 Electronically signed: . Marco Bolton MD, PhD, Pathologist NPI- [id number] . 01 Gross description: . Received in one formalin-filled container labeled with the patient's name and labeled antral, are four 0.1-0.3 cm portions of tissue, entirely submitted in one cassette. ([id number]) /FRR . 02 Pathologist provided ICD-10: R10.13 . 02 CPT . 192577 Performed at: 01 [facility] [address] [id number] MD David Verde MD Phone: [phone] Performed at: 02 [facility] [address] [place] [id number] MD Allen Dyson MD Phone: [phone]
[2018-06-07] MEDS: PIPERACILLIN-TAZO 3.375 GM/50 ML FROZ.PIGGY IV ×4 (00:01→21:23)
[2018-06-07] MEDS: INSULIN ASPART 100 UNIT/ML INSULN PEN SUBCUT ×4 (00:01→16:53)
[2018-06-07] MEDS: DEXTROSE 5%-0.45% NS 1,000 ML 84 ML IV (03:05)
[2018-06-07] MEDS: MORPHINE 2 MG/ML INJ IV (03:16)
--- NOTE | 2018-06-07 05:12 | PC.NURSE ---
Patient dozed intermittently throughout night, no s/s bleeding, NPO since midnight for EGD in am. D5 1/2NS @ 84ml/hr, Protonix gtt still infusing. CBG at MN = 273, 5 units Novolog coverage given. Zosyn as scheduled, 2mg IV morphine at 0330 for chronic right shoulder pain. SR, VSS, uses C-pap, SpO2 >95% RA. Stands to void without difficultly. Transferred to room 229 at 0500 via , stable, report given to Shira JOEL.
--- NOTE | 2018-06-07 05:21 | PC.NURSE ---
transfer Pt transfered from room 103 to 229 at 0505. [facility] from [facility]. Brought in wheelchair and able to ambulate, SBA. AOx3. Has currently been NPO since midnight due to EGD planned for today. IVF running at ordered rate. Tele. Serial blood sugars. Pt denies pain at this time but reports hx of chronic right should pain, mainly when laying down. Call light in reach.
[2018-06-07 05:22] LABS: Add Manual Diff / Slide Review NO; Basophils Percent Auto 0.9 % (0-2); Eosinophils Percent Auto 3.7 % (2-4); Hemoglobin 7.1 g/dL (13.5-17.5); Lymphocytes Percent Auto 26.8 % (25-40); Mean Corpuscular HGB Conc 33.9 % (30-36); Mean Corpuscular Hemoglobin 30.9 PG (26-34); Mean Corpuscular Volume 91.2 fL (80-100); Neutrophils Absolute Auto 3500 /uL (3000-5900); Neutrophils Percent Auto 59.6 % (50-75); Platelet Count 81 X10^3/uL (150-400); Red Cell Distribution Width 15.5 % (11.6-14.8); White Blood Cell Count 5.8 X10^3/uL (4.5-11.0)
[2018-06-07 05:24] LABS: Alanine Aminotransferase 37 IU/L (21-72); Albumin 2.8 g/dL (3.5-5.0); Albumin Globulin Ratio 1.1 (1.0-2.8); Alkaline Phosphatase 52 U/L (38-126); Aspartate Aminotransferase 46 IU/L (17-59); BUN Creatinine Ratio 39.2 (6-22); Bilirubin Total 0.5 mg/dL (0.2-1.3); Blood Urea Nitrogen 51 mg/dL (9-20); Calcium 8.7 mg/dL (8.4-10.2); Carbon Dioxide 28 mmol/L (22-32); Chloride 105 mmol/L (98-107); Estimated Glomerular Filt Rate 55.6 mL/min (>60); Globulin 2.5 g/dL (1.7-4.1); Glucose 239 mg/dL (80-110); HEMOLYSIS < 15 (0-50); Lactate (Lactic Acid) 3.1 mmol/L (0.7-2.1); Potassium 4.4 mmol/L (3.4-5.1); Sodium 140 mmol/L (137-145); Total Protein 5.3 g/dL (6.3-8.2)
[2018-06-07 09:01] LABS: Reflexed Lactate in 2 Hours Y
[2018-06-07 10:12] LABS: Lactate 2HR (Lactic Acid Rflx) 3.2 mmol/L (0.7-2.1)
--- NOTE | 2018-06-07 12:45 | PM.PREOP ---
Pre-operative Note Interval Note Pre-op Check: Yes History & Physical Reviewed by Physician and Yes Exam Performed Changes: No H&P completed within 30 days and has changed as indicated here:: No changes to history and physical examination/consultation note dated June 05, 2018 and placed on the chart. Patient has no current melena but remains anemic. Has received blood transfusion. Will proceed with EGD today as planned under anesthesia.
[2018-06-07] MEDS: LACTATED RINGERS 1,000 ML 42 ML IV ×2 (13:30→15:44)
--- NOTE | 2018-06-07 13:33 | PM.PN.1 ---
Subjective Date Patient Seen: 06/07/18 Time Patient Seen: 13:37 Interval history: Patient has had no further melena or hemetemsis He denies shortness of breath or chest pain He is awaiting the EGD Exam Vital Signs (past 8 hours): - 06/07/18 07:40 06/07/18 12:00 06/07/18 12:05 Temperature 98.0 F 98.1 F 98.1 F Pulse Rate 64 68 68 Respiratory Rate 16 16 16 Blood Pressure 102/47 L 111/48 L 111/48 L Pulse Oximetry 97 97 06/07/18 12:50 Temperature 98.4 F Pulse Rate 64 Respiratory Rate 16 Blood Pressure 108/35 L Pulse Oximetry 96 Fraction of Inspired Oxygen 24 Oxygen Delivery Method Room Air Oxygen Flow Rate 0 Narrative Exam Narrative: Lungs: Clear To auscultation CV: RRR nl Sl S2 Abd: obese soft/non tender/ non distended Ext: 1+ edema Skin: No lesions Objective Labs Result Diagrams: 06/07/18 04:46 06/07/18 04:46 Labs: Laboratory Results - last 24 hr 06/05/18 06/06/18 06/06/18 14:40 13:15 13:15 WBC RBC Hgb 7.7 L Hct 23.7 L MCV MCH MCHC RDW Plt Count Neut % (Auto) Lymph % (Auto) Shannon % (Auto) Eos % (Auto) Baso % (Auto) Neut # (Auto) Sodium 142 Potassium 5.4 H Chloride 105 Carbon Dioxide 30 BUN 81 H Creatinine 1.30 H Estimated GFR 55.6 L BUN/Creatinine Ratio 62.3 H Glucose 245 H Lactate Calcium 9.1 Total Bilirubin AST ALT Alkaline Phosphatase Total Protein Albumin Globulin Albumin/Globulin Ratio Blood Type A Positive Antibody Screen Negative Crossmatch See Detail 06/06/18 06/07/18 06/07/18 13:15 04:46 04:46 WBC 5.8 RBC 2.30 L Hgb 7.1 L Hct 21.0 L MCV 91.2 MCH 30.9 MCHC 33.9 RDW 15.5 H Plt Count 81 L Neut % (Auto) 59.6 Lymph % (Auto) 26.8 Shannon % (Auto) 9.0 Eos % (Auto) 3.7 Baso % (Auto) 0.9 Neut # (Auto) 3500 Sodium 140 Potassium 4.4 Chloride 105 Carbon Dioxide 28 BUN 51 H Creatinine 1.30 H Estimated GFR 55.6 L BUN/Creatinine Ratio 39.2 H Glucose 239 H Lactate 2.0 Calcium 8.7 Total Bilirubin 0.5 AST 46 ALT 37 Alkaline Phosphatase 52 Total Protein 5.3 L Albumin 2.8 L Globulin 2.5 Albumin/Globulin Ratio 1.1 Blood Type Antibody Screen Crossmatch 06/07/18 06/07/18 04:46 09:50 WBC RBC Hgb Hct MCV MCH MCHC RDW Plt Count Neut % (Auto) Lymph % (Auto) Shannon % (Auto) Eos % (Auto) Baso % (Auto) Neut # (Auto) Sodium Potassium Chloride Carbon Dioxide BUN Creatinine Estimated GFR BUN/Creatinine Ratio Glucose Lactate 3.1 H 3.2 H Calcium Total Bilirubin AST ALT Alkaline Phosphatase Total Protein Albumin Globulin Albumin/Globulin Ratio Blood Type Antibody Screen Crossmatch Assessment & Plan Plan: Assessment/Plan Narrative: GI : Bleed-awaiting EGD today Blood loss anemia-Will transfuse 1 unit PRBC and start iron Hyperglycemia-continue insulin Acutre renal insufficiency -will continue to follow Quality VTE Deep Vein Thrombosis/Pulmonary Embolism Present on Admission: No
--- NOTE | 2018-06-07 14:55 | PM.OP.1 ---
Operative Date/Time/Diagnoses Date of procedure: 06/07/18 Time of procedure: 14:55 Pre-op diagnosis: Melena, symptomatic anemia, and upper gastrointestinal hemorrhage Post-op diagnosis: other (Upper gastrointestinal hemorrhage secondary to severe gastritis and duodenitis related to NSAIDs) Procedure & Clinicians Procedure: Esophagogastroduodenoscopy with cold forceps biopsies Same procedure as scheduled: Yes Indications: 62-year-old diabetic male who presented with melena, hematemesis, and symptomatic anemia. Examination and evaluation were consistent with upper gastrointestinal hemorrhage. Once he had been stabilized with regard to his hyperglycemia and metabolic acidosis he was recommended to undergo EGD. Surgeon: Clifton Eduardo Click Yes if Unassisted: Yes Anesthesia Type: Sedation (per anesthesiology) Operative Notes Findings: 1. Z-line at 38 cm from the incisors 2. Normal esophagus without evidence of esophagitis, stricture, or other abnormalities including neoplasm 3. Severe diffuse erosive gastritis throughout the entire stomach 4. No fresh or old blood within the stomach or duodenum 5. Moderate duodenitis, particularly in the 1st portion of the duodenum 6. No evidence of gastric ulcers or duodenal ulcers 7. Small hiatal hernia clinically insignificant Closure Type: not applicable Specimen(s): other (Antral biopsies) Implants & Drains: None Estimated Blood Loss (mL): 3 Blood products transfused: none Procedure in detail: After obtaining informed consent, the patient was brought to the GI suite and placed in the left lateral decubitus position on the examination table. Given the patient's significant anemia, morbid obesity, brittle diabetes, obstructive sleep apnea, and difficult airway the anesthesiology services were clearly indicated to provide sedation for the procedure. A time out was held per SCOAP protocol. A bite block was gently placed between the patient's teeth. The endoscope was lubricated and then passed into the patient's posterior oropharynx. The esophagus was cannulated under direct vision and the scope was passed to the second portion of the duodenum without difficulty. The scope was then withdrawn with careful examination of all areas of the upper GI tract and mucosa. In the stomach, the instrument was retroflexed and the GE junction examined. The scope was straightened and the procedure continued with examination of the remainder of the upper GI tract. Findings are noted above. Air was aspirated from the stomach and the endoscope gently removed from the esophagus. The patient was allowed to awaken from sedation without difficulty and taken to the post-anesthesia care unit in good condition. Complications: none Condition: stable Disposition: PACU Plan for aftercare: 1. Return to regular surgical floor for ongoing convalescence 2. Further diabetic and anemia management per Internal Medicine service 3. Strongly recommend that the patient never use NSAIDs and that he remain on long-term proton pump inhibitor therapy for at least 60 days 4. May require alternative analgesic for chronic shoulder pain since has been requiring daily naproxen for such
--- NOTE | 2018-06-07 15:41 | PC.NURSE ---
GI: SNo bloody stools. No bm's today. Pt has felt well even with decreased h/h. No dizziness when up in room, gait has been steady. Pt had 2 IV's, one IV infiltrated when seen this am, second IV is painful. Pt has a general puffiness and reports he is a diff stick, also has had numerous blood draws and arms are bruised over his useable sites. Needed PIC/Midline and same was ordered by MD. Midline was difficult to place but DI Nurse Phyllis was able to get IV in. Unit of blood is up and running and no sxs of transfusion reaction was seen. OR came to mushroom picker pt for his egd and he was off to same. Pt had orders for new IVF and additionally he needs his IV antibiotic which was due at 1300 - this information was given to on coming RN Lupe and she knows these meds will need to be given when patient returns to floor. Did receive report from PACU, pt will be coming up after change of shift. Information was passed to oncoming RN. Cont w/poc.
[2018-06-07] MEDS: FERROUS SULFATE 325 MG TABLET PO (15:45)
--- NOTE | 2018-06-07 16:15 | PC.NURSE ---
Blood started on AC floor but most was infused while patient was in surgery. 15min vitals not documented. Blood completed on AC floor.
--- NOTE | 2018-06-07 16:26 | PC.NURSE ---
Pt back from pacu at 1530. A&O, calm and cooperative. Denied any abd pain. No active bleeding noted. Pt tolerating clear liquids.
[2018-06-07 18:41] LABS: Hematocrit 24.4 % (41-53); Hemoglobin 8.2 g/dL (13.5-17.5)
--- NOTE | 2018-06-07 20:03 | RT ---
DISCOVERED PT ON BIFLEX W/ RA. O2 SAT NOTED AT 95%. PT APPEARS COMFORTABLE AND LARGE FULL-FACE MASK APPEARS TO HAVE A GOOD FIT. NO DISTRESS NOTED.
[2018-06-07] MEDS: METFORMIN HCL 500 MG TABLET 1000 MG PO (21:22)
[2018-06-07] MEDS: ATORVASTATIN 20 MG TABLET 80 MG PO (21:22)
[2018-06-07] MEDS: PANTOPRAZOLE 40 MG VIAL IV (21:23)
--- NOTE | 2018-06-07 22:03 | PC.NURSE ---
Pt denies abd pain, n/v. Tolerated gen diet well. No active bleeding noted this shift.
[2018-06-08] VITALS (11 sets, daily range): BP systolic 90–130; BP diastolic 48–71; PULSE 64–74; RESP 16–20; TEMP 36.1–38.1; O2SAT 93–98
[2018-06-08] MEDS: PIPERACILLIN-TAZO 3.375 GM/50 ML FROZ.PIGGY IV (05:00)
[2018-06-08 05:19] LABS: Add Manual Diff / Slide Review NO; Basophils Percent Auto 0.7 % (0-2); Eosinophils Percent Auto 4.5 % (2-4); Hematocrit 23.4 % (41-53); Hemoglobin 7.8 g/dL (13.5-17.5); Lymphocytes Percent Auto 31.5 % (25-40); Mean Corpuscular HGB Conc 33.3 % (30-36); Mean Corpuscular Volume 90.1 fL (80-100); Monocytes Percent Auto 8.8 % (3-14); Neutrophils Absolute Auto 2000 /uL (3000-5900); Neutrophils Percent Auto 54.5 % (50-75); Platelet Count 71 X10^3/uL (150-400); Red Cell Distribution Width 16.4 % (11.6-14.8); White Blood Cell Count 3.6 X10^3/uL (4.5-11.0)
--- NOTE | 2018-06-08 06:20 | PC.NURSE ---
0620 Notified MD regarding pt's AM H/H, ordered 1unit PRBC to be transfused.
[2018-06-08] MEDS: LEVOTHYROXINE 75 MCG TABLET PO (06:42)
[2018-06-08] MEDS: LEVOTHYROXINE 100 MCG TABLET PO (06:43)
[2018-06-08] MEDS: PANTOPRAZOLE 40 MG VIAL IV (06:43)
[2018-06-08] MEDS: METFORMIN HCL 500 MG TABLET 1000 MG PO (09:13)
[2018-06-08] MEDS: FERROUS SULFATE 325 MG TABLET PO (09:13)
[2018-06-08] MEDS: INSULIN ASPART 100 UNIT/ML INSULN PEN SUBCUT ×2 (09:14→12:27)
--- NOTE | 2018-06-08 09:55 | PC.NURSE ---
Called related to midline not working. difficulty flushing even with arm movement, removed dressing, pulled midline out 4 cm and then got blood return and easily flushed. Did dressing change while i was there. pt has lots of bruising around site but no bleeding. Let Shani the nurse taking care of patient know that line is working again.
--- NOTE | 2018-06-08 10:13 | CM.DPNOTE ---
DCP/continued: Reviewed chart. Spoke with Dr. Gibson in AM rounds. Patient anticipated to d/c home today. Met with patient to confirm d/c plan. Patient reports that he is very comfortable returning home today. Patient reports that he has had no difficulty with ambulation to/from bathroom. Patient has ride scheduled to pick him up today around 1:00pm. Patient requesting to walk in hallway prior d/c. RN updated and patient to walk today after blood transfusion completed. Patient does not feel that PT evaluation necessary. P: Home today. ALEXANDER Zamora
--- NOTE | 2018-06-08 10:19 | CM.DPC ---
DCP/continued: Important message from Medicare message signed today at approximately 10:15AM. ALEXANDER Zamora
--- NOTE | 2018-06-08 10:22 | P.DS_ITS ---
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[facility] came to the ER because of 2 days history of black stools he also had an episode of coffee-ground emesis last night He has had water drinker since then but has no further emesis does not complain of any abdominal pain fever chills or rigors He was on Lantus and Byetta but the orthodox group but decided to go for cheaper medication and and he ended up with poor control of his diabetes according to him No cough phlegm or shortness of breath no chest pain reported Discharge Providers Date of admission: 06/05/18 15:56 Primary care physician: Josephine Rubio MD Consults: 06/05/18 19:02 Consult to General Surgery Routine Comment: Consulting Provider: Clifton Eduardo Reason for consultation: GI bleed Has provider been notified: Yes 06/07/18 13:34 Consult to Respiratory Therapy Evaluate & Treat Comment: Physician Instructions: Evaluate and treat Discharge provider: Maddy Gibson MD Summary Discharge Diagnosis: Upper GI Bleed secondary to severe erosive esophagitis Blood loss anemia s/p transfusion of 2 units PRBCs Iron deficiency anemia Hypothyroidism Morbid Obesity Type 2 diabetes Mellitus Hospital Course: patient was admitted to the hospital for anemia, melena, and hemetemsis. He underwent EGD which confirmed severe erosive esophagitis most likely due to chronic NSAID use. Patient recieved 2 units prbc's which he tolerated well. His diet was advanced and he was deemed appropriate for discharge home. Status at Discharge Cognitive/behavioral status at discharge: at baseline Functional status at discharge: independent ambulation Overall status at discharge: patient is back to baseline Time Spent with Patient Less than 30 minutes Exam Vital Signs (past 8 hours): - 06/08/18 03:58 06/08/18 04:00 06/08/18 07:18 Temperature 97.9 F 97 F L Pulse Rate 74 74 Respiratory Rate 18 16 Blood Pressure 130/48 H 90/71 Pulse Oximetry 93 98 06/08/18 07:34 06/08/18 07:43 06/08/18 08:55 Temperature 97 F L 97.5 F L Pulse Rate 74 70 Respiratory Rate 16 16 Blood Pressure 90/71 109/61 Pulse Oximetry 97 06/08/18 10:06 Temperature Pulse Rate Respiratory Rate Blood Pressure Pulse Oximetry 98 Fraction of Inspired Oxygen 21 Oxygen Delivery Method Room Air Oxygen Flow Rate 0 Narrative Exam Narrative: Lungs: Clear to auscultation CV: RRR nl Sl S2 Abd: obese/ soft non tender Ext: no edema Objective Labs Result Diagrams: 06/08/18 05:10 06/07/18 04:46 Labs: Laboratory Results - last 24 hr 06/05/18 06/07/18 06/08/18 14:40 18:20 05:10 WBC 3.6 L RBC 2.60 L Hgb 8.2 L 7.8 L Hct 24.4 L 23.4 L MCV 90.1 MCH 30.0 MCHC 33.3 RDW 16.4 H Plt Count 71 L Neut % (Auto) 54.5 Lymph % (Auto) 31.5 [place] % (Auto) 8.8 Eos % (Auto) 4.5 H Baso % (Auto) 0.7 Neut # (Auto) 2000 L Blood Type A Positive Antibody Screen Negative Crossmatch See Detail Discharge Plan Discharge Plan Patient Disposition: Home Discharge comment: Follow up with PCP next week Provider Discharge Instructions Diet: Carb-consistent/Diabetic Activity: as tolerated Discharge Data Primary Care Provider: Josephine Rubio Attending Provider: Jona Rojas Admit Date/Time: 06/05/18 15:56 Quality VTE Deep Vein Thrombosis/Pulmonary Embolism Present on Admission: No
== END 2018-06-08 13:11 | disposition home or self-care (01) | DRG 381 ==
LOC: ED 15:17 → AC 15:57 → ICU 20:55 → AC 06-08 10:22 → ICU 06-08 14:18
PROVIDERS: Internal Medicine; Surgery; Admitting Provider Internal Medicine; Emergency Provider Emergency Medicine; PCP Internal Medicine; Visit Provider Internal Medicine
PROC: 0DJ08ZZ Inspection of Upper Intestinal Tract, Via Natural or Artificial Opening Endoscopic (ICD-10-PCS; CPT 43235; principal; 2018-06-07 15:00)
DX: K22.11 Ulcer of esophagus with bleeding (principal); N17.9 Acute kidney failure, unspecified; Z68.42 Body mass index [BMI] 45.0-49.9, adult; L03.115 Cellulitis of right lower limb; D62 Acute posthemorrhagic anemia; E87.2 Acidosis; E11.65 Type 2 diabetes mellitus with hyperglycemia; E87.5 Hyperkalemia; K29.80 Duodenitis without bleeding; E03.9 Hypothyroidism, unspecified; E66.01 Morbid (severe) obesity due to excess calories; R79.89 Other specified abnormal findings of blood chemistry; T39.395A Adverse effect of other nonsteroidal anti-inflammatory drugs [NSAID], initial encounter; K29.60 Other gastritis without bleeding
CPT/HCPCS: 36415; 36430; 36592; 43239; 80048; 80053; 82947; 82962; 83605; 83690; 84132; 85014; 85018; 85025; 85610; 85730; 86850; 86900; 86901; 87040; 87086; 87797; 88305; 94660; 99222; 99231; 99283; P9016; C9113; J0610; J2250; J2270; J2543; J3010; J7050

== ENCOUNTER 2018-11-11 09:47 | Emergency (ER) | payer MEDICARE, OTHER, SELFPAY ==
[2018-06-05 17:54] VITALS: BMI 47.9
[2018-11-11 09:53] VITALS: BP 125/52; PULSE 71; RESP 14; TEMP 36.4; O2SAT 94
[2018-11-11] MEDS: AMOXICILLIN/CLAV 875/125 MG 1 TAB PO (10:28)
--- NOTE | 2018-11-11 10:31 | ED.SKABFB ---
HPI - Skin/Abscess/Foreign Bdy General Chief complaint: Skin/Abscess/Foreign Body Stated complaint: RT ARM INFLAMED SWOLLEN Time Seen by Provider: 11/11/18 09:58 Source: patient Mode of arrival: ambulatory Limitations: no limitations History of Present Illness HPI narrative: Patient complains of right hand dorsally erythema, swelling, and pain for the last 3 days, after sustaining a single wound from a dog bite 4 days ago. Patient states it was a friend's Vincent[place] Joshua puppy, and that it was just mouthing him,when 1 of the dog's teeth punctured the skin on the dorsum of his hand. Patient states he did not think much of it, but the next day, began to notice erythema around the wound. The erythema continued to spread, and patient noticed mild edema and tenderness. Today, patient thought he noticed a streak starting to form, going up his arm, and he decided he should get checked out. Patient denies fevers, chills, body aches, or any other symptoms of illness. Related Data Home Medications Medication Instructions Recorded Confirmed Cranberry/D-Mannose 1 tab PO DAILY 06/05/18 06/06/18 atorvastatin 80 mg PO DAILY 06/05/18 06/05/18 ferrous sulfate [Iron (ferrous 325 mg PO DAILY 06/05/18 06/05/18 sulfate)] insulin glargine [Lantus Solostar 80 unit SUB-Q DAILY 06/05/18 06/05/18 U-100 Insulin] levothyroxine [Synthroid] 175 mcg PO DAILY 06/05/18 06/05/18 metformin 100 mg PO BID 06/05/18 06/05/18 Previous Rx's Medication Instructions Recorded exenatide [Byetta] 5 mcg SUBCUT BID #1.2 ml 06/08/18 ferrous sulfate 325 mg PO DAILY #60 tab 06/08/18 pantoprazole [Protonix] 40 mg PO BID #60 tab 06/08/18 amoxicillin-pot clavulanate 1 tab PO BID #20 tab 11/11/18 [Augmentin] Allergies Allergy/AdvReac Type Severity Reaction Status Date / Time No Known Drug Allergies Allergy Verified 06/05/18 14:02 Review of Systems Constitutional Denies chills, Denies fever(s), Denies lethargy and Denies weakness Eyes Denies change in vision, Denies eye discharge, Denies irritation and Denies loss of vision ENT Ears, Nose, Mouth, and Throat: Denies change in voice, Denies neck pain and Denies sore throat Cardiovascular Denies chest pain, Denies irregular heart rhythm, Denies lightheadedness, Denies palpitations, Denies dyspnea, Denies dyspnea on exertion and Denies orthopnea Respiratory Denies cough, Denies dyspnea, Denies dyspnea on exertion and Denies wheezing Gastrointestinal Gastrointestinal: Denies abdominal pain, Denies change in bowel habits, Denies diarrhea, Denies nausea and Denies vomiting Genitourinary Denies hematuria, Denies flank pain, Denies urinary incontinence and Denies urinary urgency Musculoskeletal Denies neck pain Integumentary/Breasts Denies pruritus, Reports erythema, Denies rash and Denies wounds Neurologic Denies confusion, Denies loss of vision and Denies weakness Psychiatric Denies anxiety, Denies confusion, Denies depression, Denies homicidal ideation and Denies suicidal ideation Endocrine Denies palpitations Hematologic/Lymphatic Denies easy bruising Allergic/Immunologic Denies wheezing [facility] Medical History Diabetes (Acute) Gastrointestinal hemorrhage with melena (Acute) Hepatic steatosis (Acute) Hypothyroid (Acute) Morbid obesity (Acute) 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) Osteoarthritis (Acute) Personal history of colonic polyps (Acute) Sleep apnea (Acute) Splenomegaly (Acute) Symptomatic anemia (Acute) Surgical History H/O transurethral destruction of bladder lesion (Acute) History of bone marrow biopsy (Acute) History of colonoscopy (Acute) History of esophagogastroduodenoscopy (EGD) (Acute) Hx of appendectomy (Acute) Social History household members: none Smoking Status: Former smoker alcohol intake: never Social History household members: none Smoking Status: Former smoker alcohol intake: never Exam Initial Vital Signs Initial Vital Signs: Vital Signs Temperature 97.5 F L 11/11/18 09:53 Pulse Rate 71 11/11/18 09:53 Respiratory Rate 14 11/11/18 09:53 Blood Pressure 125/52 L 11/11/18 09:53 Pulse Oximetry 94 11/11/18 09:53 Const General: cooperative and well developed Nutritional Appearance: well nourished Orientation: alert, awake, oriented x3 and not confused [facility] Head: normocephalic and atraumatic Ears: external ears normal Nose: external nose normal and No nasal discharge Face and sinus: face symmetric and No dry mucous membranes Mouth: oral mucosae normal and moist mucous membranes Teeth and gingiva: dentition normal Eyes General: appearance normal, both eyes and all related structures Eyelids: eyelids normal Conjunctivae: conjunctivae normal Sclera: sclerae normal Pupils: PERRL EOM: EOM intact bilaterally Neck Neck: normal visual inspection, trachea midline, No lymphadenopathy, No midline deformity and No JVD Lymphatic: No lymphedema Chest Chest: normal inspection of the chest Resp Effort & Inspection: normal respiratory effort, able to speak in complete sentences, no respiratory distress and no use of accessory muscles Auscultation: clear to auscultation bilaterally, no rales, no rhonchi and no wheezes Cardio Rate: regular rate Rhythm: regular rhythm Heart Sounds: no click, no gallops, no murmurs and no rubs Pulses: normal peripheral pulses GI Inspection: non-distended Palpation: soft, no hepatosplenomegaly, No guarding, No pulsatile mass and No tender Auscultation: normal bowel sounds Back/Spine/Pelvis Back: No CVA tenderness Cervical Spine: cervical ROM normal and No pain with cervical ROM Thoracic/Lumbar Spine: thoracic and lumbar spine normal to inspection Skin General: erythema (Dorsum of right hand and wrist; 1 cm flap laceration with scab is noted on the dorsum of the right wrist. No drainage, fluctuance, or induration is noted. ), No jaundice and No petechiae Other: Patient has a at approximately 10 cm diameter patch of erythema over his dorsal right wrist and hand. Moderate edema is noted. Patient has an approximately 4 cm erythematous streak extending proximally from the proximal edge of the erythema. Neuro General: alert, oriented x3, gait normal and no focal motor deficits Speech: speech normal Extrem General: full ROM, no clubbing, cyanosis or edema, no pedal edema and no calf tenderness Psych Appearance: well kempt Mental Status: mental status grossly normal Attitude: cooperative Thought Content: normal and suicidality Judgment: judgment good Course Course Narrative: Patient was given a dose of Augmentin. He was counseled regarding the timeline for resolution of infection. We also discussed the usual indications for return. The wound edges were marked with a skin marker. Patient was deemed stable for discharge home. Orders Ordered: Discontinued Medications Amoxicillin/Clavulanate Potassium (Augmentin 875-125 Mg) 1 tab PO NOW ONE Stop: 11/11/18 10:25 Last Admin: 11/11/18 10:28 Dose: 1 tab Vital Signs - 8 hr 11/11/18 09:53 Temperature 97.5 F L Pulse Rate 71 Respiratory Rate 14 Blood Pressure 125/52 L Pulse Oximetry 94 MDM - Skin/Abscess/Foreign Bdy Medical Records Attestation: I reviewed the patient's medical records. Discharge Plan Departure Patient Disposition: Home Clinical Impression: Cellulitis, Dog bite Instructions: DI for Cellulitis -- Adult, DI for Dog Bite Prescriptions: New amoxicillin-pot clavulanate [Augmentin] 875-125 mg tablet 1 tab PO BID Qty: 20 RF: 0 No Action levothyroxine [Synthroid] 175 mcg Tablet 175 mcg PO DAILY RF: 0 ferrous sulfate [Iron (ferrous sulfate)] 325 mg (65 mg iron) Tablet 325 mg PO DAILY RF: 0 metformin 1,000 mg Tablet 100 mg PO BID RF: 0 insulin glargine [Lantus Solostar U-100 Insulin] 100 unit/mL (3 mL) Insulin Pen 80 unit SUB-Q DAILY RF: 0 Cranberry/D-Mannose 1 tab PO DAILY RF: 0 atorvastatin 80 mg PO DAILY RF: 0 pantoprazole [Protonix] 40 mg tablet,delayed release (DR/EC) 40 mg PO BID Qty: 60 RF: 0 ferrous sulfate 325 mg (65 mg iron) Tablet 325 mg PO DAILY Qty: 60 RF: 0 exenatide [Byetta] 5 mcg/dose (250 mcg/mL) 1.2 mL pen injector 5 mcg SUBCUT BID Qty: 1.2 RF: 0 Referrals: Josephine Rubio MD [Primary Care Provider] -
[2018-11-11 11:04] VITALS: BP 134/50; PULSE 68; RESP 18; O2SAT 95
== END 2018-11-11 11:09 | disposition home or self-care (01) ==
PROVIDERS: Emergency Provider Emergency Medicine; PCP Internal Medicine
DX: L03.113 Cellulitis of right upper limb (principal); W54.0XXA Bitten by dog, initial encounter
CPT/HCPCS: 99282; 99283

== ENCOUNTER → 2021-12-30 07:28 | Outpatient (CLI) | payer MEDICARE, OTHER, SELFPAY ==
[2018-06-05 17:54] VITALS: BMI 47.9
--- NOTE | 2021-12-30 | DI.ECHO.S_ITS ---
[place] [facility]---------+ [facility] +---------+ : : [address] : : : : [id number] : : : : Phone: [phone] Echocardiogram Report + + :Name: DIA ESCOBAR Study Date: 12/30/2021 Height: 69 in : :[facility] ReadingLocation: Weight: 314 lb : : Gender: Male BSA: 2.5 m2 : :: 1955 Age: 66 yrs BP: 142/98 mmHg: :Reason For Study: CARDIAC MURMUR : :Ordering Physician: PORSCHE, : :EBONIE Performed By: Heather Jacob : :Referring: EBONIE MORRELL : + + Interpretation Summary The left ventricle is normal in size and wall thickness. The ejection fraction is estimated to be 60-65%. The right ventricular systolic function is normal. The left atrium is moderately dilated. There is mild to moderate aortic stenosis. Procedure: A two-dimensional transthoracic echocardiogram with color flow and Doppler was performed. The study quality was technically adequate. There is no prior echocardiogram noted for this patient. The patient was in sinus rhythm with heart rates between 58-70 bpm during the exam. Left Ventricle: The left ventricle is normal in size and wall thickness. The ejection fraction is estimated to be 60-65%. There are no focal wall motion abnormalities. Distolic function cannot be assessed 'Due to lack of a TR jet.'. Right Ventricle: The right ventricle is mildly dilated. The right ventricular systolic function is normal. Atria: The left atrium is moderately dilated. Right atrial size is normal. There is no Doppler evidence for an interatrial shunt. Mitral Valve: The mitral valve is normal in structure and function. There is trace mitral regurgitation. Aortic Valve: The aortic valve is trileaflet. The aortic valve opens well. There is mild to moderate aortic stenosis. The peak aortic velocity is 2.9 m/sec. The aortic valve mean gradient is 16 mmHg. The calculated aortic valve area is 1.4 cm2. There is trace aortic regurgitation. Tricuspid Valve: The tricuspid valve is normal in structure and function. There is trace tricuspid regurgitation. Pulmonic Valve: The pulmonic valve leaflets are thin and pliable; valve motion is normal. There is mild pulmonic regurgitation. Great Vessels: The aortic root is normal size. The inferior vena cava was not well visualized. Pericardium/ Pleura There is no pericardial effusion. There is no pleural effusion. MMode/2D Measurements & Calculations LVIDd: 5.3 cm LVOT diam: 2.1 cm LVIDs: 3.4 cm Ao root diam: 3.6 cm FS: 36.0 % asc Aorta Diam: 3.6 cm IVSd: 1.1 cm LVPWd: 0.99 cm LV badillo. diameter/BSA (cm/m^2): 2.1 LV sys. diameter/BSA (cm/m^2): 1.4 LA A2 area: 27.3 cm2 RA long axis: 5.6 cm LA A4 area: 29.0 cm2 RA area: 21.4 cm2 LA length (vol): 6.3 cm RA vol: 68.9 ml LA vol: 107.3 ml RA : 27.5 ml/m2 LA vol index: 42.9 ml/m2 RVD1 (basal): 4.4 cm RVD2 (mid): 3.9 cm TAPSE: 2.7 cm Doppler Measurements & Calculations Ao V2 max: 293.6 cm/sec LVOT Max Tejinder: 116.3 cm/sec Ao V2 mean: 178.2 cm/sec LV V1 max P.4 mmHg Ao max P.5 mmHg LV V1 VTI: 24.7 cm Ao mean P.0 mmHg CARMEL(I,D): 1.6 cm2 Ao V2 VTI: 54.9 cm CARMEL(V,D): 1.4 cm2 sev ratio: 0.45 CARMEL indexed to BSA (cm^2/m^2): 0.64 MV E max tejinder: 82.5 cm/sec PA V2 max: 126.4 cm/sec MV A max tejinder: 90.2 cm/sec PA V2 mean: 90.5 cm/sec MV E/A: 0.91 PA mean P.7 mmHg Med Peak E' Tejinder: 6.7 cm/sec PA pr(Accel): 31.0 mmHg E/E' med: 12.3 Lat Peak E' Tejinder: 10.4 cm/sec E/E' lat: 7.9 E/e' average: 10.1 MV dec time: 0.27 sec [facility] 88.6 ml Reading Physician:SHITAL
== END ==
PROVIDERS: PCP Internal Medicine; Referring Provider Family Medicine; Visit Provider Family Medicine
DX: I35.0 Nonrheumatic aortic (valve) stenosis (principal); I37.1 Nonrheumatic pulmonary valve insufficiency; R01.1 Cardiac murmur, unspecified; Z20.822 Contact with and (suspected) exposure to COVID-19
CPT/HCPCS: 87635; 93306; C9803

== ENCOUNTER → 2021-12-30 09:20 | Outpatient (CLI) | payer MEDICARE, OTHER, SELFPAY ==
[2018-06-05 17:54] VITALS: BMI 47.9
[2021-12-30 10:54] LABS: COVID19 -Nasal RAPID Negative (Negative)
== END ==
PROVIDERS: PCP Internal Medicine; Visit Provider Surgery
DX: Z01.812 Encounter for preprocedural laboratory examination (principal); Z20.822 Contact with and (suspected) exposure to COVID-19
CPT/HCPCS: 87635

== ENCOUNTER 2022-01-01 10:07 | Day surgery (SDC) | payer MEDICARE, OTHER, SELFPAY ==
[2018-06-05 17:54] VITALS: BMI 47.9
--- NOTE | 2022-01-01 09:27 | SUR.PREOP ---
0925-spoke with patient at home. Did not realize he was supposed to be here at 9am, believed 12 n. Calling ride & will be here franny.
[2022-01-01] MEDS: LACTATED RINGERS 1,000 ML 42 ML IV (10:26)
[2022-01-01 10:33] VITALS: BMI 59.3
--- NOTE | 2022-01-01 11:16 | PM.HP.1 ---
History of Present Illness History of Present Illness Date Patient Seen: 01/01/22 Time Patient Seen: 11:16 Chief complaint: SDC Narrative: Berhane is a 66-year-old man who is here for a colonoscopy. His last was about 5 years ago. He had a polyp in was told to return in 5 years. His only other medical conditions diabetes. 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 Osteoarthritis Personal history of colonic polyps Sleep apnea Splenomegaly Symptomatic anemia Surgical History H/O transurethral destruction of bladder lesion History of bone marrow biopsy History of colonoscopy History of esophagogastroduodenoscopy (EGD) Hx of appendectomy Family & Social History Social History: household members none Tobacco & Substance use: Smoking Status Former smoker alcohol intake current alcohol intake frequency holiday/special occasion Substance Use Type does not use Meds Home Medications and Allergies Home Medications Medication Instructions Recorded Confirmed Type Cranberry/D-Mannose 1 tab PO DAILY 06/05/18 11/11/18 History atorvastatin 80 mg tablet 80 mg PO DAILY #0 06/05/18 11/11/18 History insulin glargine 100 unit/mL (3 80 unit SUB-Q DAILY 06/05/18 11/11/18 History mL) subcutaneous pen (Lantus Solostar U-100 Insulin) levothyroxine 175 mcg tablet 175 mcg PO DAILY 06/05/18 11/11/18 History (Synthroid) metformin 1,000 mg tablet 100 mg PO BID 06/05/18 11/11/18 History exenatide (Byetta) 5 mcg (0.02 mL) SUBCUT BID #1.2 ml 06/08/18 11/11/18 Rx ferrous sulfate 325 mg (65 mg 325 mg PO DAILY #60 tab 06/08/18 11/11/18 Rx iron) tablet pantoprazole 40 mg tablet,delayed 40 mg PO BID #60 tab 06/08/18 11/11/18 Rx release (Protonix) amoxicillin 875 mg-potassium 1 tab PO BID #20 tab 11/11/18 Rx clavulanate 125 mg tablet (Augmentin) telmisartan 80 1 tab PO DAILY 11/11/18 11/11/18 History mg-hydrochlorothiazide 25 mg tablet Allergies Allergy/AdvReac Type Severity Reaction Status Date / Time No Known Drug Allergies Allergy Verified 06/05/18 14:02 Exam Const Nutritional Appearance: obese Resp Effort & Inspection: normal respiratory effort GI Palpation: soft Assessment & Plan Assessment and plan (1) Personal history of colonic polyps: Status: Acute Plan Reviewed the risks and benefits of colonoscopy any like to proceed. COVID-19 COVID-19 status: Negative Result date/Date tested (Pos, Neg/Pending): 12/31/21 Time Spent With Patient Critical Care time: I spent a total of [] minutes of critical care time on this patient's care today; this time is exclusive of procedural time.
[2022-01-01] MEDS: fentaNYL 250 MCG/5 ML INJ IV (11:25)
[2022-01-01] MEDS: MIDAZOLAM 5 MG/5 ML VIAL IV (11:25)
--- NOTE | 2022-01-01 11:58 | PM.OP.COLON ---
Operative Date/Time/Diagnoses Date of procedure: 01/01/22 Time of procedure: 11:58 Pre-op diagnosis: History of polyps Post-op diagnosis: same Procedure & Clinicians Study performed: Colonoscopy Same procedure as scheduled: Yes Surgeon: Reilly Boykin Procedure Notes Procedure in detail: Procedure: The patient was brought to the endoscopy suite, placed in left lateral decubitus position. The patient was connected to monitoring devices. A time-out was performed. Sedation was administered. Once the patient was adequately sedated, a digital rectal exam was performed and was normal. The scope was then inserted and advanced to the cecum where the appendiceal orifice was identified and photographed. The scope was then slowly withdrawn over greater than 6 minutes. Mucosa was thoroughly inspected. No polyps were noted. The scope was retroflexed in the rectum. There were internal hemorrhoids. The scope was straightened and removed. The patient was awakened and brought to recovery. Versed: 5 mg Fentanyl: 150 mcg EBL: 0 Findings: No polyps Scope withdrawal time: 8 Sedation minutes: 32 Post-procedure Recommendations: Colonoscopy in 10 years Disposition: PACU
[2022-01-01 12:09] VITALS: BP 129/59; PULSE 67; RESP 14; TEMP 36.6; O2SAT 98
[2022-01-01 12:20] VITALS: BP 130/52; PULSE 59; RESP 16; O2SAT 98
[2022-01-01 12:26] VITALS: BP 131/46; PULSE 69; RESP 15; O2SAT 98
== END 2022-01-01 12:36 | disposition home or self-care (01) ==
PROVIDERS: PCP Internal Medicine; Referring Provider Surgery; Visit Provider Surgery
PROC: 0DJD8ZZ Inspection of Lower Intestinal Tract, Via Natural or Artificial Opening Endoscopic (ICD-10-PCS; CPT 45378; principal; 2022-01-01 10:00)
DX: Z12.11 Encounter for screening for malignant neoplasm of colon (principal); Z86.010 Personal history of colon polyps; E11.9 Type 2 diabetes mellitus without complications; Z79.4 Long term (current) use of insulin; Z79.84 Long term (current) use of oral hypoglycemic drugs
CPT/HCPCS: G0105; 99152; J2250; J3010

== ENCOUNTER 2022-02-13 13:48 | Inpatient (IN) | payer MEDICARE, OTHER, SELFPAY ==
[2018-06-05 17:54] VITALS: BMI 47.9
[2022-02-13] VITALS (16 sets, daily range): BP systolic 98–128; BP diastolic 40–60; PULSE 61–76; RESP 16–25; TEMP 36–36.4; O2SAT 92–99; BMI 46.5; BMI 41.0
--- NOTE | 2022-02-13 14:43 | ED.WEAKNESS ---
HPI - Weakness General Chief complaint: Weakness Stated complaint: N/V/D x 2 weeks Time Seen by Provider: 02/13/22 14:43 History of Present Illness HPI Narrative: 66M former smoker with history of gastritis and poorly controlled diabetes presents by EMS for evaluation of upwards of 2 weeks of nausea, vomiting and diarrhea. It has been mild at 1st but over the past few days has become significantly worsen he is unable to keep any food or drink down. He has become dizzy, weak and lightheaded and on arrival EMS found his blood pressure to be in the 90s. He denies any change in diet or new medications, no recent antibiotics or bad food. Denies exposure to other ill persons. He has had no fever but admits to chills. He has no chest pain or shortness of breath. Related Data Home Medications Medication Instructions Recorded Confirmed Cranberry/D-Mannose 1 tab PO DAILY 06/05/18 11/11/18 atorvastatin 80 mg tablet 80 mg PO DAILY #0 06/05/18 11/11/18 insulin glargine 100 unit/mL (3 80 unit SUB-Q DAILY 06/05/18 11/11/18 mL) subcutaneous pen (Lantus Solostar U-100 Insulin) levothyroxine 175 mcg tablet 175 mcg PO DAILY 06/05/18 11/11/18 (Synthroid) metformin 1,000 mg tablet 100 mg PO BID 06/05/18 11/11/18 telmisartan 80 1 tab PO DAILY 11/11/18 11/11/18 mg-hydrochlorothiazide 25 mg tablet Previous Rx's Medication Instructions Recorded exenatide (Byetta) 5 mcg (0.02 mL) SUBCUT BID #1.2 ml 06/08/18 ferrous sulfate 325 mg (65 mg 325 mg PO DAILY #60 tab 06/08/18 iron) tablet pantoprazole 40 mg tablet,delayed 40 mg PO BID #60 tab 06/08/18 release (Protonix) amoxicillin 875 mg-potassium 1 tab PO BID #20 tab 11/11/18 clavulanate 125 mg tablet (Augmentin) Allergies Allergy/AdvReac Type Severity Reaction Status Date / Time No Known Drug Allergies Allergy Verified 06/05/18 14:02 Review of Systems Review of Systems Narrative: GENERAL: See HPI HEENT: Denies sinus pain, ear pain, sore throat, difficulty swallowing, dizziness. RESPIRATORY: Denies dyspnea, cough, wheezing, hemoptysis, sputum. CARDIOVASCULAR: Denies chest pain, palpitations, orthopnea, edema, GASTROINTESTINAL: See HPI : Denies dysuria, frequency, incontinence, hematuria, urinary retention. MUSCULOSKELETAL: denies weakness, joint pain, or bony pain SKIN: Denies rash, skin lesions, or other NEUROLOGIC: Denies weakness, headache, numbness, change in speech, confusion, seizures, incoordination. PSYCHIATRIC: No concerning psychosocial issues. 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 Well-developed patient, in mild distress. HEAD: Atraumatic. Normocephalic. EYES: Pupils equal round and reactive. Extraocular motions intact. No scleral icterus. No injection or drainage. ENT: Nose without bleeding, purulent drainage. Throat without erythema, tonsillar hypertrophy or exudate. Airway patent. NECK: Trachea midline. Non tender CARDIOVASCULAR: Regular rate and rhythm without murmurs, gallops, or rubs. RESPIRATORY: Clear to auscultation. Breath sounds equal bilaterally. No wheezes, rales, or rhonchi. GASTROINTESTINAL: Abdomen soft, non-tender, nondistended. EXTREMITIES: No edema or joint tenderness. BACK: Nontender without deformity or crepitance. No flank tenderness. NEURO: AOx3. SKIN: No rash or erythema of visible areas Initial Vital Signs Initial Vital Signs: Vital Signs Temperature 97.6 F 02/13/22 14:22 Pulse Rate 76 02/13/22 14:22 Respiratory Rate 16 02/13/22 14:22 Blood Pressure 98/56 L 02/13/22 14:22 Pulse Oximetry 97 02/13/22 14:22 Course Orders Ordered: ED Orders 02/13/22 14:30 EKG-12 Lead Stat 02/13/22 14:38 COVID19 -Nasal RAPID/Pre-Proc Stat Complete Blood Count AUTO DIFF Stat Comprehensive Metabolic Panel Stat Lipase Stat Partial Thromboplastin Time Stat Prothrombin Time INR Stat 02/13/22 15:23 US renal complete Stat Creatinine Urine Random Stat Sodium Urine Random Stat 02/13/22 17:17 XR acute abdomen series Stat Discontinued Medications Sodium Chloride (Normal Saline 0.9%) 1,000 mls @ 1,000 mls/hr IV BOLUS ONE Stop: 02/13/22 16:36 Last Infusion: 02/13/22 15:49 Dose: 0 mls/hr Documented by: Admin: 02/13/22 14:50 Dose: 1,000 mls/hr Documented by: DEANDRE Lactated Ringer's (Lactated Ringers) 1,000 mls @ 1,000 mls/hr IV BOLUS ONE Stop: 02/13/22 16:45 Last Infusion: 02/13/22 16:58 Dose: 0 mls/hr Documented by: Admin: 02/13/22 15:49 Dose: 1,000 mls/hr Documented by: DEANDRE Ondansetron HCl (Ondansetron 4 Mg/2 Ml Inj) 4 mg IV NOW ONE Stop: 02/13/22 14:31 Last Admin: 02/13/22 14:49 Dose: 4 mg Documented by: SACHI Pantoprazole Sodium (Pantoprazole 40 Mg Vial) 40 mg IV NOW ONE Stop: 02/13/22 16:59 Last Admin: 02/13/22 17:27 Dose: 40 mg Documented by: BRANDON Vital Signs Vital signs: Vital Signs - 8 hr 02/13/22 14:22 02/13/22 14:46 02/13/22 14:49 Temperature 97.6 F Pulse Rate 76 68 69 Respiratory Rate 16 21 20 Blood Pressure 98/56 L 104/57 L Pulse Oximetry 97 97 02/13/22 15:00 02/13/22 15:01 02/13/22 15:30 Temperature Pulse Rate 65 63 62 Respiratory Rate 17 17 18 Blood Pressure 106/53 L 117/54 L Pulse Oximetry 96 96 95 02/13/22 16:00 02/13/22 16:30 02/13/22 16:31 Temperature Pulse Rate 61 66 66 Respiratory Rate 25 H 18 18 Blood Pressure 121/57 L 127/58 L Pulse Oximetry 92 93 93 02/13/22 17:00 02/13/22 17:01 02/13/22 17:30 Temperature Pulse Rate 72 66 72 Respiratory Rate 18 18 17 Blood Pressure 128/60 125/60 Pulse Oximetry 98 98 96 02/13/22 18:16 02/13/22 18:30 Temperature Pulse Rate 71 73 Respiratory Rate 18 18 Blood Pressure Pulse Oximetry 95 MDM - Weakness Lab Data Result diagrams: 02/13/22 14:38 02/13/22 14:38 Labs: Lab Results 02/13/22 02/13/22 02/13/22 Range/Units 14:38 14:38 14:38 WBC 21.6 H (4.5-11.0) X10^3/uL RBC 5.14 (4.5-5.9) X10^6/uL Hgb 15.5 (13.5-17.5) g/dL Hct 45.5 (41-53) % MCV 88.5 (80-100) fL MCH 30.1 (26-34) PG MCHC 34.0 (30-36) % RDW 16.0 H (11.6-14.8) % Plt Count 169 (150-400) X10^3/uL Neut % (Auto) Not Reportable Lymph % (Auto) Not Reportable [place] % (Auto) Not Reportable Eos % (Auto) Not Reportable Baso % (Auto) Not Reportable Lymph # (Auto) Not Reportable [place] # (Auto) Not Reportable Baso # (Auto) Not Reportable Total Counted 100 Seg Neutrophils % 34.0 L (38-70) % Band Neutrophils % 7.0 (3-7) % Lymphocytes % (Manual) 18.0 L (25-45) % Atypical Lymphs % 1.0 H ( - 0) % Monocytes % (Manual) 3.0 (2-11) % Eosinophils % (Manual) 36.0 H (2-4) % Basophils % (Manual) 1.0 (0-1) % Neutrophils # (Manual) 8856 H (1046-4609) /uL RBC Morphology Normal morphology PT (10.1-12.7) SECONDS INR (0.9-1.3) APTT (26.4-36.2) SECONDS Sodium 139 (137-145) mmol/L Potassium 4.7 (3.4-5.1) mmol/L Chloride 108 H (98-107) mmol/L Carbon Dioxide 10 L (22-32) mmol/L BUN 61 H (9-20) mg/dL Creatinine 6.03 H (0.66-1.25) mg/dL Estimated GFR 9 L (>60) mL/min BUN/Creatinine Ratio 10.1 (6-22) Glucose 191 H (80-110) mg/dL Calcium 9.4 (8.4-10.2) mg/dL Total Bilirubin 0.8 (0.2-1.3) mg/dL AST 35 (17-59) IU/L ALT 32 (<50) IU/L Alkaline Phosphatase 155 H (38-126) U/L Total Protein 9.4 H (6.3-8.2) g/dL Albumin 4.8 (3.5-5.0) g/dL Globulin 4.6 H (1.7-4.1) g/dL Albumin/Globulin Ratio 1.0 (1.0-2.8) Lipase 234 (23-300) U/L SARS-CoV-2 (PCR) Negative (Negative) 02/13/22 Range/Units 14:38 WBC (4.5-11.0) X10^3/uL RBC (4.5-5.9) X10^6/uL Hgb (13.5-17.5) g/dL Hct (41-53) % MCV (80-100) fL MCH (26-34) PG MCHC (30-36) % RDW (11.6-14.8) % Plt Count (150-400) X10^3/uL Neut % (Auto) Lymph % (Auto) [place] % (Auto) Eos % (Auto) Baso % (Auto) Lymph # (Auto) [place] # (Auto) Baso # (Auto) Total Counted Seg Neutrophils % (38-70) % Band Neutrophils % (3-7) % Lymphocytes % (Manual) (25-45) % Atypical Lymphs % ( - 0) % Monocytes % (Manual) (2-11) % Eosinophils % (Manual) (2-4) % Basophils % (Manual) (0-1) % Neutrophils # (Manual) (5483-6725) /uL RBC Morphology PT 14.2 H (10.1-12.7) SECONDS INR 1.3 (0.9-1.3) APTT 33 D (26.4-36.2) SECONDS Sodium (137-145) mmol/L Potassium (3.4-5.1) mmol/L Chloride (98-107) mmol/L Carbon Dioxide (22-32) mmol/L BUN (9-20) mg/dL Creatinine (0.66-1.25) mg/dL Estimated GFR (>60) mL/min BUN/Creatinine Ratio (6-22) Glucose (80-110) mg/dL Calcium (8.4-10.2) mg/dL Total Bilirubin (0.2-1.3) mg/dL AST (17-59) IU/L ALT (<50) IU/L Alkaline Phosphatase (38-126) U/L Total Protein (6.3-8.2) g/dL Albumin (3.5-5.0) g/dL Globulin (1.7-4.1) g/dL Albumin/Globulin Ratio (1.0-2.8) Lipase (23-300) U/L SARS-CoV-2 (PCR) (Negative) Imaging Data Chest x-ray: Radiologist Impression: [address] [address] XRay Report Signed Patient: Berhane Dougherty MR#: [id number] : 1955 Acct:[id number] Age/Sex: 66 / M Date of Service: 02/13/22 Loc: ED Accession Number: [id number] ?? Procedure: XR acute abdomen series Ordering Provider: Ganesh Worley D.O. PROCEDURE:? XR ACUTE ABDOMEN SERIES ? INDICATIONS:? N/V/D ? TECHNIQUE:? One view chest and two views of the abdomen were acquired.? ? COMPARISON:? [facility], , CHEST 1 VIEW, 12/30/2017, 19:12. ? FINDINGS:? ? Surgical changes and devices:? None.? ? Chest:? Lungs are clear.? Heart size is normal.? No pleural effusions.? No pneumoperitoneum.? ? Abdomen:? Bowel gas pattern is nonspecific No suspicious calcifications.? Visualized solid organ contours appear normal.? ? Bones:? No suspicious bony lesions.? ? IMPRESSION:? Nonspecific bowel gas pattern without definite evidence of obstruction. No acute cardiopulmonary disease process. ? ? Dictated by: Mildred Beard MD, PhD on 02/13/2022 at 18:25 ? ? Approved by: Mildred Beard MD, PhD on 02/13/2022 at 18:27 ? Renal US: Radiologist Impression: Launch?Image [address] [address] Ultrasound Report Signed Patient: Berhane Dougherty MR#: [id number] : 1955 Acct:[id number] Age/Sex: 66 / M Date of Service: 02/13/22 Loc: ED Accession Number: [id number] ?? Procedure: US renal complete Ordering Provider: Ganesh Worley D.O. PROCEDURE:? US RENAL COMPLETE ? INDICATIONS:? acute renal failure ? TECHNIQUE:? Real-time scanning was performed of the kidneys and bladder, with image documentation.? ? COMPARISON:? [facility], CT, ABDOMEN/PELVIS WITH CONTRAST, 01/01/2018, 22:08. ? FINDINGS:? ? Kidneys:? Kidneys are normal in size.? Right kidney measures 14.4 cm long; left kidney measures 12.3 cm long.? Right renal cortical thickness is 1.5 cm; left renal cortical thickness is 1.6 cm.? No hydronephrosis or nephrolithiasis.? No suspicious solid mass lesions.? 2.6 x 2.7 x 2.4 cm hypoechoic lesion in the left superior/mid pole, which appears to contain some low-level echoes and may reflect a hemorrhagic or proteinaceous cyst. ? Bladder:? Pre-void bladder volume is 51.8 mL.? Pre-void images demonstrate no intraluminal masses or stones.? On pre-void images, no ureteral jets are noted with color Doppler interrogation.? (Of note, ureteral jets may not be detectable in up to 25% of cases due to insufficient differences in specific gravity between ureteral and bladder urine).? ? Miscellaneous:? No free pelvic fluid.? ? IMPRESSION:? Hypoechoic lesion in the left kidney as detailed above, which may reflect a proteinaceous or hemorrhagic cyst. ? ? Dictated by: Ariel Garcia M.D. on 02/13/2022 at 17:15 ? ? Approved by: Ariel Garcia M.D. on 02/13/2022 at 17:20 ? Discharge Plan Departure Patient Disposition: Admitted As Inpatient Clinical Impression: Acute kidney injury, Vomiting, Diarrhea Admit Date/Time: 02/13/22 18:42 Admit Provider: Wicho Bazan
[2022-02-13] MEDS: ONDANSETRON 4 MG/2 ML INJ IV (14:49)
[2022-02-13] MEDS: SODIUM CHLORIDE 0.9% 1,000 ML 1000 ML IV (14:50)
[2022-02-13 14:54] LABS: Add Manual Diff / Slide Review YES; Hematocrit 45.5 % (41-53); Hemoglobin 15.5 g/dL (13.5-17.5); Mean Corpuscular Hemoglobin 30.1 PG (26-34); Mean Corpuscular Volume 88.5 fL (80-100); Platelet Count 169 X10^3/uL (150-400); Red Blood Cell Count 5.14 X10^6/uL (4.5-5.9); White Blood Cell Count 21.6 X10^3/uL (4.5-11.0)
[2022-02-13 14:55] LABS: INR 1.3 (0.9-1.3); Prothrombin Time 14.2 SECONDS (10.1-12.7)
[2022-02-13 14:58] LABS: PTT Partial Thromboplastin Tim 33 SECONDS (26.4-36.2)
[2022-02-13 15:02] LABS: COVID19 -Nasal RAPID Negative (Negative)
[2022-02-13 15:06] LABS: Alanine Aminotransferase 32 IU/L (<50); Albumin 4.8 g/dL (3.5-5.0); Alkaline Phosphatase 155 U/L (38-126); Aspartate Aminotransferase 35 IU/L (17-59); BUN Creatinine Ratio 10.1 (6-22); Bilirubin Total 0.8 mg/dL (0.2-1.3); Blood Urea Nitrogen 61 mg/dL (9-20); Calcium 9.4 mg/dL (8.4-10.2); Carbon Dioxide 10 mmol/L (22-32); Chloride 108 mmol/L (98-107); Estimated Glomerular Filt Rate 9 mL/min (>60); Globulin 4.6 g/dL (1.7-4.1); Glucose 191 mg/dL (80-110); HEMOLYSIS 31 (0-50); Lipase 234 U/L (23-300); Potassium 4.7 mmol/L (3.4-5.1); Sodium 139 mmol/L (137-145); Total Protein 9.4 g/dL (6.3-8.2)
[2022-02-13 15:14] LABS: Neutrophils Absolute Manual 8856 /uL (3000-5900); RBC Morphology Normal Morphology; Total Cells Counted 100
--- NOTE | 2022-02-13 15:23 | DI.US.S_ITS ---
PROCEDURE: US RENAL COMPLETE INDICATIONS: acute renal failure TECHNIQUE: Real-time scanning was performed of the kidneys and bladder, with image documentation. COMPARISON: [facility], CT, ABDOMEN/PELVIS WITH CONTRAST, 01/01/2018, 22:08. FINDINGS: Kidneys: Kidneys are normal in size. Right kidney measures 14.4 cm long; left kidney measures 12.3 cm long. Right renal cortical thickness is 1.5 cm; left renal cortical thickness is 1.6 cm. No hydronephrosis or nephrolithiasis. No suspicious solid mass lesions. 2.6 x 2.7 x 2.4 cm hypoechoic lesion in the left superior/mid pole, which appears to contain some low-level echoes and may reflect a hemorrhagic or proteinaceous cyst. Bladder: Pre-void bladder volume is 51.8 mL. Pre-void images demonstrate no intraluminal masses or stones. On pre-void images, no ureteral jets are noted with color Doppler interrogation. (Of note, ureteral jets may not be detectable in up to 25% of cases due to insufficient differences in specific gravity between ureteral and bladder urine). Miscellaneous: No free pelvic fluid. IMPRESSION: Hypoechoic lesion in the left kidney as detailed above, which may reflect a proteinaceous or hemorrhagic cyst. Dictated by: Ariel Garcia M.D. on 02/13/2022 at 17:15 Approved by: Ariel Garcia M.D. on 02/13/2022 at 17:20
[2022-02-13] MEDS: LACTATED RINGERS 1,000 ML 1000 ML IV (15:49)
--- NOTE | 2022-02-13 17:17 | DI.RAD.S_ITS ---
PROCEDURE: XR ACUTE ABDOMEN SERIES INDICATIONS: N/V/D TECHNIQUE: One view chest and two views of the abdomen were acquired. COMPARISON: [facility], , CHEST 1 VIEW, 12/30/2017, 19:12. FINDINGS: Surgical changes and devices: None. Chest: Lungs are clear. Heart size is normal. No pleural effusions. No pneumoperitoneum. Abdomen: Bowel gas pattern is nonspecific No suspicious calcifications. Visualized solid organ contours appear normal. Bones: No suspicious bony lesions. IMPRESSION: Nonspecific bowel gas pattern without definite evidence of obstruction. No acute cardiopulmonary disease process. Dictated by: Mildred Beard MD, PhD on 02/13/2022 at 18:25 Approved by: Mildred Beard MD, PhD on 02/13/2022 at 18:27
[2022-02-13] MEDS: PANTOPRAZOLE 40 MG VIAL IV (17:27)
[2022-02-13 19:58] LABS: Lactate (Lactic Acid) 2.7 mmol/L (0.7-2.1)
[2022-02-13 20:01] LABS: Hemoglobin A1C% w Est Avg Glu 7.4 % (4.0-6.0)
[2022-02-13 20:32] LABS: Thyroid Stimulating Hormone 14.7 uIU/mL (0.47-4.68)
[2022-02-13 20:54] LABS: Adenovirus F 40/41 Not Detected (Not Detect); Astrovirus Not Detected (Not Detect); Campylobacter Not Detected (Not Detect); Clostridium difficile toxin AB Not Detected (Not Detect); Cryptosporidium Not Detected (Not Detect); Cyclospora cayetanensis Not Detected (Not Detect); Entamoeba histolytica Not Detected (Not Detect); Enteroaggregative E.coli Not Detected (Not Detect); Enteropathogenic E.coli Not Detected (Not Detect); Enterotoxigenic E.coli It/st Not Detected (Not Detect); Giardia lamblia Not Detected (Not Detect); Norovirus GI/GII Not Detected (Not Detect); Plesiomonsa shigelloides Not Detected (Not Detect); Rotavirus A Not Detected (Not Detect); Salmonella Not Detected (Not Detect); Sapovirus Not Detected (Not Detect); Shiga-like toxin-prod E.coli Not Detected (Not Detect); Shigella/Enteroinvasive E.coli Not Detected (Not Detect); Vibrio Not Detected (Not Detect); Vibrio cholerae Not Detected (Not Detect); Yersinia enterocolitica Not Detected (Not Detect)
[2022-02-13] MEDS: SODIUM CHLORIDE 0.9% 1,000 ML 150 ML IV (21:17)
[2022-02-13 21:44] LABS: Reflexed Lactate in 2 Hours Y
[2022-02-13 21:45] LABS: Free T4, Direct Thyroxine 0.97 ng/dL (0.78-2.19)
--- NOTE | 2022-02-13 21:46 | P.HP_ITS ---
History of Present Illness History of Present Illness Date Patient Seen: 02/13/22 Time Patient Seen: 21:46 Chief complaint: Nausea, vomiting, diarrhea X 2 weeks Narrative: Berhane Dougherty is a 66 y.o. male with diabetes, hypertension and hypothyroidism presented with a 2 week history of diarrhea and vomiting, vomiting worsened in the past 2 days. He vomited 4-5 times today. He denies fever chills, recent travel, sick contacts in his home, initiation of new medications, or any life changes. Vomiting has been mostly bile, has missed or thrown up oral m edications every several days or so and is unable to keep any food or liquids down. Unable to identify a specific trigger. States since being sick, has lost 30 lbs according to the bed scale. He states he has a feeling of heartburn just prior to having nausea. States has become dizzy, weak and lightheaded and on arrival EMS found his blood pressure to be in the 90s. Denies shortness of breath, chest pain, abdominal pain, dysuria, or upper or lower extremity neuropathies. Denies marijuana use regular or episodic. Ultrasound of the kidney noted Hypoechoic lesion in the left kidney as detailed above, which may reflect a proteinaceous or hemorrhagic cyst. Abdominal Xray negative Nonspecific bowel gas pattern without definite evidence of obstruction. No acute cardiopulmonary disease process.Is a markedly elevated white count of 21.6, he has a left shift with initial fill count of 80 100, his creatinine is 6.03, BUN 61 with the EGFR of 9, glucose is 191 with a hemoglobin A1c of 7.4, alk-phos is 155, TSH is 14.7 and free T4 is borderline low at 0.97 stool cultures are negative, lactate is positive at 7.4 and will be repeated in 2 hours, however procalcitonin is 0.50, negative. Clostridium difficile and Campylobacter PCRs are negative, Helicobacter pylori is pending. COVID-19 PCR is negative. 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 Osteoarthritis Personal history of colonic polyps Sleep apnea Splenomegaly Symptomatic anemia Surgical History H/O transurethral destruction of bladder lesion History of bone marrow biopsy History of colonoscopy History of esophagogastroduodenoscopy (EGD) Hx of appendectomy Family & Social History Social History: household members none Prior Living Arrangements House Safety & Behavioral: Feels Safe in Current Yes Environment Been Physically Hurt or No Threatened By a Person Tobacco & Substance use: Tobacco type cigarettes Smoking Status Former smoker alcohol intake current alcohol intake frequency holiday/special occasion Substance Use Type does not use Meds Home Medications and Allergies Home Medications Medication Instructions Recorded Confirmed Type Cranberry/D-Mannose 1 tab PO DAILY 06/05/18 02/13/22 History insulin glargine 100 unit/mL (3 70 unit SUB-Q DAILY 06/05/18 02/13/22 History mL) subcutaneous pen (Lantus Solostar U-100 Insulin) levothyroxine 175 mcg tablet 175 mcg PO DAILY 06/05/18 02/13/22 History (Synthroid) metformin 1,000 mg tablet 1,000 mg PO BID 06/05/18 02/13/22 History ferrous sulfate 325 mg (65 mg 325 mg PO DAILY #60 tab 06/08/18 02/13/22 Rx iron) tablet telmisartan 80 1 tab PO DAILY 11/11/18 02/13/22 History mg-hydrochlorothiazide 25 mg tablet liraglutide 0.6 mg/0.1 mL (18 mg/3 1.8 mg SUBCUT DAILY 02/13/22 02/13/22 History mL) subcutaneous pen injector (Victoza 3-Sung) rosuvastatin 20 mg tablet 20 mg PO DAILY 02/13/22 02/13/22 History Allergies Allergy/AdvReac Type Severity Reaction Status Date / Time No Known Drug Allergies Allergy Verified 06/05/18 14:02 Review of Systems Review of Systems ROS: Yes All systems reviewed with the patient and are negative except as otherwise documented Exam Vital Signs (past 8 hours): - 02/13/22 14:22 02/13/22 14:46 02/13/22 14:49 Temperature 97.6 F Pulse Rate 76 68 69 Respiratory Rate 16 21 20 Blood Pressure 98/56 L 104/57 L Pulse Oximetry 97 97 02/13/22 15:00 02/13/22 15:01 02/13/22 15:30 Temperature Pulse Rate 65 63 62 Respiratory Rate 17 17 18 Blood Pressure 106/53 L 117/54 L Pulse Oximetry 96 96 95 02/13/22 16:00 02/13/22 16:30 02/13/22 16:31 Temperature Pulse Rate 61 66 66 Respiratory Rate 25 H 18 18 Blood Pressure 121/57 L 127/58 L Pulse Oximetry 92 93 93 02/13/22 17:00 02/13/22 17:01 02/13/22 17:30 Temperature Pulse Rate 72 66 72 Respiratory Rate 18 18 17 Blood Pressure 128/60 125/60 Pulse Oximetry 98 98 96 02/13/22 18:16 02/13/22 18:30 02/13/22 19:46 Temperature 96.8 F L Pulse Rate 71 73 68 Respiratory Rate 18 18 18 Blood Pressure 112/40 L Pulse Oximetry 95 99 02/13/22 20:21 Temperature Pulse Rate Respiratory Rate Blood Pressure Pulse Oximetry 96 Oxygen Delivery Method Room Air Oxygen Flow Rate 0 Narrative Exam Narrative: Gen: Alert, oriented, morbidly obese 66 y.o. male, appears fatigued HEENT: normocephalic, atraumatic, conjunctiva clear, sclera non-icteric, oral mucosa pink and moist Neck: supple, full ROM, no JVD, trachea is midline Resp: Lungs CTA, non-labored breathing CV: RRR, no murmur or rubs Abd: Obese, soft, non-tender, hyperactive BTs Skin: no lesions or rashes, dry and intact, appears to have venous stasis scarring, no open wounds Neuro: Alert and oriented X 4 w/no focal deficits. Speech clear and coherent. Extremities: , moves all 4 extremities, is ambulatory, negative Melita?s sign Psyche: normal mood and affect. Objective Labs Result Diagrams: 02/13/22 14:38 02/13/22 14:38 Labs: Laboratory Results - last 24 hr 02/13/22 02/13/22 02/13/22 14:38 14:38 14:38 WBC 21.6 H RBC 5.14 Hgb 15.5 Hct 45.5 MCV 88.5 MCH 30.1 MCHC 34.0 RDW 16.0 H Plt Count 169 Neut % (Auto) Not Reportable Lymph % (Auto) Not Reportable Dukes % (Auto) Not Reportable Eos % (Auto) Not Reportable Baso % (Auto) Not Reportable Lymph # (Auto) Not Reportable Dukes # (Auto) Not Reportable Baso # (Auto) Not Reportable Total Counted 100 Seg Neutrophils % 34.0 L Band Neutrophils % 7.0 Lymphocytes % (Manual) 18.0 L Atypical Lymphs % 1.0 H Monocytes % (Manual) 3.0 Eosinophils % (Manual) 36.0 H Basophils % (Manual) 1.0 Neutrophils # (Manual) 8856 H RBC Morphology Normal morphology PT INR APTT Sodium 139 Potassium 4.7 Chloride 108 H Carbon Dioxide 10 L BUN 61 H Creatinine 6.03 H Estimated GFR 9 L BUN/Creatinine Ratio 10.1 Glucose 191 H Hemoglobin A1c Lactate Calcium 9.4 Total Bilirubin 0.8 AST 35 ALT 32 Alkaline Phosphatase 155 H Total Protein 9.4 H Albumin 4.8 Globulin 4.6 H Albumin/Globulin Ratio 1.0 Lipase 234 Procalcitonin TSH Stl C. cayetanensis PCR Stool Rotavirus (PCR) Stool Adenovirus (PCR) Stool Astrovirus (PCR) Stool Cryptosporidium PCR Stl E.coli Shiga Tox PCR St Sh/Enteroin Ecoli PCR Stool E coli O157 PCR Stl Enterotoxigenic E PCR Stool EPEC (PCR) Stl E. histolytica PCR Stool Giardia Lamblia PCR Stool Sapovirus (PCR) Stl P. shigelloides PCR St Y.enterocolitica PCR Stool Vibrio (PCR) Stl Vibrio cholerae PCR Stl Enteroaggr Ecoli PCR Stl Norovirus GI/GII PCR Campylobacter (PCR) C. difficile Tox (PCR) SARS-CoV-2 (PCR) Negative Salmonella (PCR) 02/13/22 02/13/22 02/13/22 14:38 14:38 14:38 WBC RBC Hgb Hct MCV MCH MCHC RDW Plt Count Neut % (Auto) Lymph % (Auto) Dukes % (Auto) Eos % (Auto) Baso % (Auto) Lymph # (Auto) Dukes # (Auto) Baso # (Auto) Total Counted Seg Neutrophils % Band Neutrophils % Lymphocytes % (Manual) Atypical Lymphs % Monocytes % (Manual) Eosinophils % (Manual) Basophils % (Manual) Neutrophils # (Manual) RBC Morphology PT 14.2 H INR 1.3 APTT 33 D Sodium Potassium Chloride Carbon Dioxide BUN Creatinine Estimated GFR BUN/Creatinine Ratio Glucose Hemoglobin A1c 7.4 H Lactate Calcium Total Bilirubin AST ALT Alkaline Phosphatase Total Protein Albumin Globulin Albumin/Globulin Ratio Lipase Procalcitonin TSH 14.7 H Stl C. cayetanensis PCR Stool Rotavirus (PCR) Stool Adenovirus (PCR) Stool Astrovirus (PCR) Stool Cryptosporidium PCR Stl E.coli Shiga Tox PCR St Sh/Enteroin Ecoli PCR Stool E coli O157 PCR Stl Enterotoxigenic E PCR Stool EPEC (PCR) Stl E. histolytica PCR Stool Giardia Lamblia PCR Stool Sapovirus (PCR) Stl P. shigelloides PCR St Y.enterocolitica PCR Stool Vibrio (PCR) Stl Vibrio cholerae PCR Stl Enteroaggr Ecoli PCR Stl Norovirus GI/GII PCR Campylobacter (PCR) C. difficile Tox (PCR) SARS-CoV-2 (PCR) Salmonella (PCR) 02/13/22 02/13/22 02/13/22 14:38 14:38 19:12 WBC RBC Hgb Hct MCV MCH MCHC RDW Plt Count Neut % (Auto) Lymph % (Auto) Dukes % (Auto) Eos % (Auto) Baso % (Auto) Lymph # (Auto) Dukes # (Auto) Baso # (Auto) Total Counted Seg Neutrophils % Band Neutrophils % Lymphocytes % (Manual) Atypical Lymphs % Monocytes % (Manual) Eosinophils % (Manual) Basophils % (Manual) Neutrophils # (Manual) RBC Morphology PT INR APTT Sodium Potassium Chloride Carbon Dioxide BUN Creatinine Estimated GFR BUN/Creatinine Ratio Glucose Hemoglobin A1c Lactate 2.7 H Calcium Total Bilirubin AST ALT Alkaline Phosphatase Total Protein Albumin Globulin Albumin/Globulin Ratio Lipase Procalcitonin 0.50 TSH Stl C. cayetanensis PCR Not detected Stool Rotavirus (PCR) Not detected Stool Adenovirus (PCR) Not detected Stool Astrovirus (PCR) Not detected Stool Cryptosporidium PCR Not detected Stl E.coli Shiga Tox PCR Not detected St Sh/Enteroin Ecoli PCR Not detected Stool E coli O157 PCR Not Reportable Stl Enterotoxigenic E PCR Not detected Stool EPEC (PCR) Not detected Stl E. histolytica PCR Not detected Stool Giardia Lamblia PCR Not detected Stool Sapovirus (PCR) Not detected Stl P. shigelloides PCR Not detected St Y.enterocolitica PCR Not detected Stool Vibrio (PCR) Not detected Stl Vibrio cholerae PCR Not detected Stl Enteroaggr Ecoli PCR Not detected Stl Norovirus GI/GII PCR Not detected Campylobacter (PCR) Not detected C. difficile Tox (PCR) Not detected SARS-CoV-2 (PCR) Salmonella (PCR) Not detected Assessment & Plan Assessment & Plan narrative: Berhane Dougherty is admitted for intractable nausea and vomiting and diarrhea. 1. intractable nausea, vomiting and diarrhea * He will see IV Reglan and Zofran q.6 hours each for nausea and vomiting * Have requested stool Helicobacter pylori which is pending * Have requested guaiac for both stool and emesis * Imodium for diarrhea * I doubt this is Cannaboid hyperemesis syndrome due to the patient denying ca nnabis use * Holding antibiotics unless infection reveals itself or he shows worsening signs of infection 2. Diabetes type 2 suboptimal control with an A1c of 7.4 * Patient normally uses Victoza, glargine, and metformin * He will be maintained on glargine 70 units and medium dose regular insulin correctional dosing * Carb controlled diet 3. Hypertension, chronic * He will continue home dose of telmisartan/hydrochlorothiazide which will be likely auto subed by pharmacy with losartan 4. Dyslipidemia, chronic * Continue home dose of rosuvastatin 20 mg p.o. at bedtime 5. Obstructive sleep apnea * Patient normally has his own CPAP machine and have requested respiratory set him up with CPAP for tonight. VTE Prophylaxis: Wells risk score 0X Enoxaparin 40 mg subQ once daily X Bilateral SCDs Patient is admitted to the inpatient service due to the severity of disease, risks of further disease progression and this stay is expected to exceed 2 midnights. FEN: IV fluids: Normal saline at 150 mL/hour diet: Carb controlled diet, labs: CBC, C/BMP, liver enzymes, Mag, PT/INR Consultants: None Dispo: Probable discharge home Code status: Full code as discussed with the patient, family member Samara bhandarieladia her surrogate and POA. [X] I have utilized all available immediate resources to obtain, update, or review of the patient's current medications COVID-19 COVID-19 status: Negative Result date/Date tested (Pos, Neg/Pending): 02/13/22 Time Spent With Patient Critical Care time: I spent a total of [] minutes of critical care time on this patient's care today; this time is exclusive of procedural time. Scores Wells' Criteria for PE Clinical signs and symptoms of DVT: No PE is #1 Dx or equally likely: No Heart rate > 100: No Immobilization at least 3 days or surg in previous 4 weeks: No History of PE or DVT: No Hemoptysis: No Malignancy w/Treatment within 6 months or palliative: No Wells' PE Score total: 0 Quality VTE Deep Vein Thrombosis/Pulmonary Embolism Present on Admission: No MIPS - Admit I confirm the patient?s Advance Care Plan is present, Code status is documented, Surrogate decision maker is in patient?s record [If Yes, STOP here]: Yes MIPS - DC The patient has current or prior documentation of left ventricular ejection fraction (LVEF) less than 40%, or moderate or severely depressed left vent ricular systolic function.: No
[2022-02-13 21:58] LABS: Creatinine Urine Random 320.8 mg/dL; Sodium Urine Random 21 mmol/L (30-90)
[2022-02-14] VITALS (10 sets, daily range): BP systolic 97–112; BP diastolic 32–54; PULSE 60–69; RESP 16; TEMP 36.1–36.4; O2SAT 96–100
[2022-02-14] MEDS: LEVOTHYROXINE 137 MCG TABLET PO (05:46)
[2022-02-14 07:01] LABS: Add Manual Diff / Slide Review YES; Hematocrit 40.9 % (41-53); Hemoglobin 13.8 g/dL (13.5-17.5); Mean Corpuscular HGB Conc 33.8 % (30-36); Mean Corpuscular Volume 88.7 fL (80-100); Platelet Count 99 X10^3/uL (150-400); Red Blood Cell Count 4.61 X10^6/uL (4.5-5.9); Red Cell Distribution Width 16.4 % (11.6-14.8); White Blood Cell Count 16.7 X10^3/uL (4.5-11.0)
[2022-02-14 07:10] LABS: BUN Creatinine Ratio 14.8 (6-22); Blood Urea Nitrogen 67 mg/dL (9-20); Carbon Dioxide 11 mmol/L (22-32); Chloride 113 mmol/L (98-107); Estimated Glomerular Filt Rate 13 mL/min (>60); Glucose 123 mg/dL (80-110); HEMOLYSIS < 15 (0-50); Magnesium 1.1 mg/dL (1.6-2.3); Potassium 4.2 mmol/L (3.4-5.1); Sodium 140 mmol/L (137-145)
[2022-02-14 07:26] LABS: Procalcitonin 0.34 ng/mL (<0.5)
[2022-02-14 07:57] LABS: Neutrophils Absolute Manual 7348 /uL (3000-5900); RBC Morphology Normal Morphology; Total Cells Counted 100
[2022-02-14] MEDS: ENOXAPARIN 30 MG/0.3 ML SYRINGE SUBCUT (09:33)
[2022-02-14] MEDS: INSULIN GLARGINE 100 UNIT/ML 3ML PEN 40 UNIT SUBCUT (10:48)
[2022-02-14] MEDS: MAGNESIUM CHLORIDE 64 MG TABLET 128 MG PO ×2 (10:57→20:09)
[2022-02-14] MEDS: INSULIN LISPRO 100 UNIT/ML 3ML VIAL SUBCUT ×2 (11:40→17:54)
--- NOTE | 2022-02-14 12:08 | CM.IDA ---
DCP: Case received, EMR reviewed and met with patient. Introduced self and role. Was able to obtain information regarding patient's baseline activity status prior to hospitalization, as well as his current living situation. DCP assessment completed with information currently available. Patient is a 66 year old male who admitted yesterday afternoon to the care of the hospitalist team. PCP: [facility] [place]. Payer: confirmed: Medicare/ for Life. Patient came to the hospital via ambulance secondary to having dizziness, weakness, nausea and vomiting. Patient has history of gastritis, as well as diabetes poorly controlled. When EMS had arrived to patient's home, his blood pressure had been in the 90s. Patient was admitted for intractable nausea, vomiting and diarrhea. Met with patient in his room. He is alert and oriented. He was sitting up in his chair. He resides alone in [place]. He is retired from the [employer], and is independent at his baseline. Asked him if Dr. Rubio was still his primary care provider, and he stated, no longer, he goes to [facility], and was assigned a new provider, but could not remember the name. P: DCP to continue to follow for any needs. Patient should be able to go home when he is medically stable, but he will need to follow up with his provider. Anne Manjarrez RN/Embedded Systems Software Engineer Discharge Planning/Care Management CM Discharge Assessment Start: 02/14/22 12:05 Freq: Status: Active Protocol: Document 02/14/22 12:05 (Rec: 02/14/22 12:07 [id number]) Discharge Planning Assessment Assigned Pomologist Anne Manjarrez RN/Embedded Systems Software Engineer Advance Directives? No History Provided By Patient,Family Member,Medical Record Prior Living Arrangements House Household Members none Type of transporation used prior to Drives own vehicle admit Independent with ADL's Yes Is patient alert and oriented? Yes Caregiver for Another No Comment Patient has CPAP for night time use. Provider is Anastasia. Barriers to Discharge No Discharge Plan Home Transportation Arrangement Friend, or self. Referrals Initiated None needed Whiteboard Updated in Patient Room with Yes name and ext. # of Pomologist Review Status In Process Next Review Type Continued Stay Review
[2022-02-14] MEDS: SODIUM CHLORIDE 0.9% 1,000 ML 150 ML IV ×2 (12:19→20:19)
--- NOTE | 2022-02-14 16:25 | PM.PN.1 ---
Subjective Subjective Date Patient Seen: 02/14/22 Interval history: 66 y.o. male with diabetes, hypertension and hypothyroidism presented with a 2 week history of diarrhea and vomiting, noted dehydrated and in acute renal failure. Patient reports substantial improvement in nausea and basically vomiting and diarrhea have stopped. He is having some esophageal pain with swallowing. Renal function improving. Exam Vital Signs (past 8 hours): - 02/14/22 10:28 02/14/22 12:00 Temperature 96.9 F L Pulse Rate 61 60 Respiratory Rate 16 16 Blood Pressure 102/32 L 102/40 L Pulse Oximetry 100 100 Oxygen Delivery Method Room Air Oxygen Flow Rate 0 Narrative Exam Narrative: General: Alert, NAD Lungs: Clear Extremities: No edema Objective Labs Result Diagrams: 02/14/22 06:24 02/14/22 06:24 Labs: Laboratory Results - last 24 hr 02/13/22 02/13/22 02/13/22 14:38 14:38 14:38 WBC RBC Hgb Hct MCV MCH MCHC RDW Plt Count Neut % (Auto) Lymph % (Auto) [place] % (Auto) Eos % (Auto) Baso % (Auto) Lymph # (Auto) [place] # (Auto) Baso # (Auto) Total Counted Seg Neutrophils % Lymphocytes % (Manual) Monocytes % (Manual) Eosinophils % (Manual) Neutrophils # (Manual) RBC Morphology Sodium Potassium Chloride Carbon Dioxide BUN Creatinine Estimated GFR BUN/Creatinine Ratio Glucose Hemoglobin A1c 7.4 H Lactate Calcium Magnesium Procalcitonin 0.50 TSH 14.7 H Free T4 Ur Random Sodium Urine Creatinine Stl C. cayetanensis PCR Stool Rotavirus (PCR) Stool Adenovirus (PCR) Stool Astrovirus (PCR) Stool Cryptosporidium PCR Stl E.coli Shiga Tox PCR St Sh/Enteroin Ecoli PCR Stool E coli O157 PCR Stl Enterotoxigenic E PCR Stool EPEC (PCR) Stl E. histolytica PCR Stool Giardia Lamblia PCR Stool Sapovirus (PCR) Stl P. shigelloides PCR St Y.enterocolitica PCR Stool Vibrio (PCR) Stl Vibrio cholerae PCR Stl Enteroaggr Ecoli PCR Stl Norovirus GI/GII PCR Campylobacter (PCR) C. difficile Tox (PCR) Salmonella (PCR) 02/13/22 02/13/22 02/13/22 14:38 14:38 19:12 WBC RBC Hgb Hct MCV MCH MCHC RDW Plt Count Neut % (Auto) Lymph % (Auto) [place] % (Auto) Eos % (Auto) Baso % (Auto) Lymph # (Auto) [place] # (Auto) Baso # (Auto) Total Counted Seg Neutrophils % Lymphocytes % (Manual) Monocytes % (Manual) Eosinophils % (Manual) Neutrophils # (Manual) RBC Morphology Sodium Potassium Chloride Carbon Dioxide BUN Creatinine Estimated GFR BUN/Creatinine Ratio Glucose Hemoglobin A1c Lactate 2.7 H Calcium Magnesium Procalcitonin TSH Free T4 0.97 Ur Random Sodium Urine Creatinine Stl C. cayetanensis PCR Not detected Stool Rotavirus (PCR) Not detected Stool Adenovirus (PCR) Not detected Stool Astrovirus (PCR) Not detected Stool Cryptosporidium PCR Not detected Stl E.coli Shiga Tox PCR Not detected St Sh/Enteroin Ecoli PCR Not detected Stool E coli O157 PCR Not Reportable Stl Enterotoxigenic E PCR Not detected Stool EPEC (PCR) Not detected Stl E. histolytica PCR Not detected Stool Giardia Lamblia PCR Not detected Stool Sapovirus (PCR) Not detected Stl P. shigelloides PCR Not detected St Y.enterocolitica PCR Not detected Stool Vibrio (PCR) Not detected Stl Vibrio cholerae PCR Not detected Stl Enteroaggr Ecoli PCR Not detected Stl Norovirus GI/GII PCR Not detected Campylobacter (PCR) Not detected C. difficile Tox (PCR) Not detected Salmonella (PCR) Not detected 02/13/22 02/13/22 02/14/22 21:31 21:55 06:24 WBC 16.7 H RBC 4.61 Hgb 13.8 Hct 40.9 L MCV 88.7 MCH 30.0 MCHC 33.8 RDW 16.4 H Plt Count 99 L Neut % (Auto) Not Reportable Lymph % (Auto) Not Reportable [place] % (Auto) Not Reportable Eos % (Auto) Not Reportable Baso % (Auto) Not Reportable Lymph # (Auto) Not Reportable [place] # (Auto) Not Reportable Baso # (Auto) Not Reportable Total Counted 100 Seg Neutrophils % 44.0 Lymphocytes % (Manual) 25.0 Monocytes % (Manual) 1.0 L Eosinophils % (Manual) 30.0 H Neutrophils # (Manual) 7348 H RBC Morphology Normal morphology Sodium Potassium Chloride Carbon Dioxide BUN Creatinine Estimated GFR BUN/Creatinine Ratio Glucose Hemoglobin A1c Lactate 2.0 Calcium Magnesium Procalcitonin TSH Free T4 Ur Random Sodium 21 L Urine Creatinine 320.8 Stl C. cayetanensis PCR Stool Rotavirus (PCR) Stool Adenovirus (PCR) Stool Astrovirus (PCR) Stool Cryptosporidium PCR Stl E.coli Shiga Tox PCR St Sh/Enteroin Ecoli PCR Stool E coli O157 PCR Stl Enterotoxigenic E PCR Stool EPEC (PCR) Stl E. histolytica PCR Stool Giardia Lamblia PCR Stool Sapovirus (PCR) Stl P. shigelloides PCR St Y.enterocolitica PCR Stool Vibrio (PCR) Stl Vibrio cholerae PCR Stl Enteroaggr Ecoli PCR Stl Norovirus GI/GII PCR Campylobacter (PCR) C. difficile Tox (PCR) Salmonella (PCR) 02/14/22 02/14/22 06:24 06:24 WBC RBC Hgb Hct MCV MCH MCHC RDW Plt Count Neut % (Auto) Lymph % (Auto) [place] % (Auto) Eos % (Auto) Baso % (Auto) Lymph # (Auto) [place] # (Auto) Baso # (Auto) Total Counted Seg Neutrophils % Lymphocytes % (Manual) Monocytes % (Manual) Eosinophils % (Manual) Neutrophils # (Manual) RBC Morphology Sodium 140 Potassium 4.2 Chloride 113 H Carbon Dioxide 11 L BUN 67 H Creatinine 4.54 H Estimated GFR 13 L BUN/Creatinine Ratio 14.8 Glucose 123 H Hemoglobin A1c Lactate Calcium 8.0 L Magnesium 1.1 L Procalcitonin 0.34 TSH Free T4 Ur Random Sodium Urine Creatinine Stl C. cayetanensis PCR Stool Rotavirus (PCR) Stool Adenovirus (PCR) Stool Astrovirus (PCR) Stool Cryptosporidium PCR Stl E.coli Shiga Tox PCR St Sh/Enteroin Ecoli PCR Stool E coli O157 PCR Stl Enterotoxigenic E PCR Stool EPEC (PCR) Stl E. histolytica PCR Stool Giardia Lamblia PCR Stool Sapovirus (PCR) Stl P. shigelloides PCR St Y.enterocolitica PCR Stool Vibrio (PCR) Stl Vibrio cholerae PCR Stl Enteroaggr Ecoli PCR Stl Norovirus GI/GII PCR Campylobacter (PCR) C. 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 Intractable nausea, vomiting and diarrhea due to acute gastroenteritis -etiology not identified, CT showed left kidney cyst otherwise unremarkable -leukocytosis improving -continue supportive treatment with IV hydration, diet as tolerated 2. Acute kidney injury -creatinine 6 on admission, improving with hydration -monitor lytes, BUN and creatinine daily 3. Type 2 diabetes controlled -A1c 7.4 -hold metformin and Victoza -half usual dose Lantus 40 units daily -insulin sliding scale 4. Chronic hypertension, hyperlipidemia -hold telmisartan HCTZ -continue statin 5. Obstructive sleep apnea -can use own CPAP if available 6. Hypothyroidism -continue patient's thyroid replacement Time Spent With Patient Critical Care time: I spent a total of [] minutes of critical care time on this patient's care today; this time is exclusive of procedural time. Quality VTE Deep Vein Thrombosis/Pulmonary Embolism Present on Admission: No
[2022-02-14 22:11] LABS: Alanine Aminotransferase 23 IU/L (<50); Albumin 3.9 g/dL (3.5-5.0); Albumin Globulin Ratio 1.1 (1.0-2.8); Alkaline Phosphatase 112 U/L (38-126); Aspartate Aminotransferase 35 IU/L (17-59); Bilirubin Total 0.7 mg/dL (0.2-1.3); Bilirubin Unconjugated 0.5 mg/dL (0.0-1.1); Globulin 3.4 g/dL (1.7-4.1); HEMOLYSIS 17 (0-50); Total Protein 7.3 g/dL (6.3-8.2)
[2022-02-15 02:00] VITALS: O2SAT 95
[2022-02-15 02:30] VITALS: O2SAT 99
[2022-02-15 03:23] VITALS: BP 132/62; PULSE 68; RESP 18; TEMP 36.2; O2SAT 97
[2022-02-15] MEDS: LEVOTHYROXINE 137 MCG TABLET PO (06:08)
[2022-02-15 06:52] LABS: Hematocrit 40.1 % (41-53); Hemoglobin 13.5 g/dL (13.5-17.5); Mean Corpuscular HGB Conc 33.7 % (30-36); Mean Corpuscular Hemoglobin 29.7 PG (26-34); Mean Corpuscular Volume 88.3 fL (80-100); Platelet Count 80 X10^3/uL (150-400); Red Blood Cell Count 4.54 X10^6/uL (4.5-5.9); Red Cell Distribution Width 16.2 % (11.6-14.8); White Blood Cell Count 10.1 X10^3/uL (4.5-11.0)
[2022-02-15 06:56] LABS: Add Manual Diff / Slide Review YES
[2022-02-15 07:02] LABS: Alanine Aminotransferase 26 IU/L (<50); Albumin 3.9 g/dL (3.5-5.0); Albumin Globulin Ratio 1.2 (1.0-2.8); Alkaline Phosphatase 110 U/L (38-126); Aspartate Aminotransferase 44 IU/L (17-59); Bilirubin Total 0.6 mg/dL (0.2-1.3); Bilirubin Unconjugated 0.6 mg/dL (0.0-1.1); Globulin 3.3 g/dL (1.7-4.1); HEMOLYSIS 23 (0-50); Total Protein 7.2 g/dL (6.3-8.2)
[2022-02-15 07:04] LABS: BUN Creatinine Ratio 23.5 (6-22); Blood Urea Nitrogen 62 mg/dL (9-20); Calcium 7.9 mg/dL (8.4-10.2); Carbon Dioxide 15 mmol/L (22-32); Chloride 117 mmol/L (98-107); Estimated Glomerular Filt Rate 26 mL/min (>60); Glucose 109 mg/dL (80-110); HEMOLYSIS 22 (0-50); Sodium 143 mmol/L (137-145)
[2022-02-15 07:27] LABS: Neutrophils Absolute Manual 4141 /uL (3000-5900); RBC Morphology Normal Morphology; Total Cells Counted 100
[2022-02-15 08:00] VITALS: BP 110/33; PULSE 63; RESP 16; TEMP 35.6; O2SAT 98
[2022-02-15] MEDS: ATORVASTATIN 20 MG TABLET 40 MG PO (08:40)
[2022-02-15] MEDS: INSULIN GLARGINE 100 UNIT/ML 3ML PEN 40 UNIT SUBCUT (08:41)
[2022-02-15 09:11] VITALS: O2SAT 97
[2022-02-15 10:15] LABS: Magnesium 2.6 mg/dL (1.6-2.3)
--- NOTE | 2022-02-15 11:15 | PC.NURSE ---
AxOx4, independent and cooperative. VSS, pt denies pain. BG-94, pt only recieved his 40 units of Glargine. Pt ate well and slept well overnight. No n/v and diarrhea. Pt is stable and ready to d/c. D/c instructions were given.
--- NOTE | 2022-02-15 18:52 | P.DS_ITS ---
History of Present Illness History of Present Illness Chief complaint: Nausea, vomiting, diarrhea X 2 weeks Narrative: 66 y.o. male with diabetes, hypertension and hypothyroidism presented with a 2 week history of diarrhea and vomiting, vomiting worsened in the past 2 days. He vomited 4-5 times today.? He denies fever chills, recent travel, sick contacts in his home, initiation of new medications, or any life changes. Vomiting has been mostly bile, states has missed or thrown up oral medications every several days or so and is unable to keep any food or liquids down. Unable to identify a specific trigger. States since being sick, has lost 30 lbs according to the bed scale. He states he has a feeling of heartburn just prior to having nausea. States has become dizzy, weak and lightheaded and on arrival EMS found his blood pressure to be in the 90s.? Denies shortness of breath, chest pain, abdominal pain, dysuria, or upper or lower extremity neuropathies.? Denies marijuana use regular or episodic. Ultrasound of the kidney noted Hypoechoic lesion in the left kidney as detailed above, which may reflect a proteinaceous or hemorrhagic cyst.? Abdominal Xray negative Nonspecific bowel gas pattern without definite evidence of obstruction. No acute cardiopulmonary disease process.Is a markedly elevated white count of 21.6, he has a left shift with initial fill count of 80 100, his creatinine is 6.03, BUN 61 with the EGFR of 9, glucose is 191 with a hemoglobin A1c of 7.4, alk-phos is 155, TSH is 14.7 and free T4 is borderline low at 0.97 stool cultures are negative, lactate is positive at 7.4 and will be repeated in 2 hours, however procalcitonin is 0.50, negative.? Clostridium difficile and Campylobacter PCRs are? negative, Helicobacter pylori is pending.? COVID-19 PCR is negative. Discharge Providers Provider Date of admission: 02/13/22 18:42 Discharge Date: 02/15/22 Primary care physician: Josephine Rubio MD Discharge provider: Wicho Bazan MD Summary Hospital Course Discharge Diagnosis: 1. Acute gastroenteritis 2. Eosinophilia unclear etiology 3. Acute kidney injury 4. Type 2 diabetes insulin requiring 5. Hypertension 6. Sleep apnea 7. Chronic thrombocytopenia Hospital Course: Patient came in with 2 week history of intractable nausea, vomiting and diarrhea. He was aggressively hydrated and symptoms resolved over course of 1-2 days. Etiology was not identified. He was severely dehydrated with significant acute kidney injury. Renal injury resolved. He had significant leukocytosis but total WBC normal by discharge. He has impressive eosinophilia with 36% eosinophils on manual cell count, was 28% on discharge. Unclear if this is related to his gastroenteritis or a separate problem. He does not have history of asthma or allergies. He does run chronic low platelets which he states was evaluated thoroughly by Oncology in the past. Recommended he have repeat CBC on follow-up with his PCP. Status at Discharge Cognitive/behavioral status at discharge: oriented Functional status at discharge: independent ambulation Overall status at discharge: patient is progressing back to baseline Time Spent with Patient Time spent: Less than 30 minutes Exam Vital Signs (past 8 hours): Oxygen Delivery Method Room Air Oxygen Flow Rate 0 Narrative Exam Narrative: General: Alert well-appearing male no acute distress Objective Labs Result Diagrams: 02/15/22 06:40 02/15/22 06:40 Labs: Laboratory Results - last 24 hr 02/14/22 02/15/22 02/15/22 06:24 06:40 06:40 WBC 10.1 RBC 4.54 Hgb 13.5 Hct 40.1 L MCV 88.3 MCH 29.7 MCHC 33.7 RDW 16.2 H Plt Count 80 L Neut % (Auto) Not Reportable Lymph % (Auto) Not Reportable [place] % (Auto) Not Reportable Eos % (Auto) Not Reportable Baso % (Auto) Not Reportable Lymph # (Auto) Not Reportable [place] # (Auto) Not Reportable Baso # (Auto) Not Reportable Total Counted 100 Seg Neutrophils % 41.0 Lymphocytes % (Manual) 31.0 Eosinophils % (Manual) 28.0 H Neutrophils # (Manual) 4141 RBC Morphology Normal morphology Sodium 143 Potassium 4.0 Chloride 117 H Carbon Dioxide 15 L BUN 62 H Creatinine 2.64 H Estimated GFR 26 L BUN/Creatinine Ratio 23.5 H Glucose 109 Calcium 7.9 L Magnesium Total Bilirubin 0.7 Conjugated Bilirubin 0.0 Unconjugated Bilirubin 0.5 AST 35 ALT 23 Alkaline Phosphatase 112 Total Protein 7.3 Albumin 3.9 Globulin 3.4 Albumin/Globulin Ratio 1.1 02/15/22 02/15/22 06:40 06:40 WBC RBC Hgb Hct MCV MCH MCHC RDW Plt Count Neut % (Auto) Lymph % (Auto) [place] % (Auto) Eos % (Auto) Baso % (Auto) Lymph # (Auto) [place] # (Auto) Baso # (Auto) Total Counted Seg Neutrophils % Lymphocytes % (Manual) Eosinophils % (Manual) Neutrophils # (Manual) RBC Morphology Sodium Potassium Chloride Carbon Dioxide BUN Creatinine Estimated GFR BUN/Creatinine Ratio Glucose Calcium Magnesium 2.6 H Total Bilirubin 0.6 Conjugated Bilirubin 0.0 Unconjugated Bilirubin 0.6 AST 44 ALT 26 Alkaline Phosphatase 110 Total Protein 7.2 Albumin 3.9 Globulin 3.3 Albumin/Globulin Ratio 1.2 PFSH Medical History Diabetes Gastrointestinal hemorrhage with melena Hepatic steatosis Hypothyroid Morbid obesity 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 Have CBC rechecked to check elevated eosinophil count and low platelets. Take 1/2 dose of your Lantus insulin until you are eating normally and blood sugars start going higher. Gluc ose was 109 on labs this morning. Discharge orders & Medications Prescriptions: Continued levothyroxine [Synthroid] 175 mcg Tablet 175 mcg PO DAILY 0RF metformin 1,000 mg Tablet 1,000 mg PO BID 0RF Lantus Solostar U-100 Insulin 100 unit/mL (3 mL) Insulin Pen 80 unit SUB-Q DAILY 0RF Cranberry/D-Mannose 1 tab PO DAILY 0RF ferrous sulfate 325 mg (65 mg iron) Tablet 325 mg PO DAILY Qty: 60 0RF rosuvastatin 20 mg tablet 20 mg PO DAILY 0RF Victoza 3-Sung 0.6 mg/0.1 mL (18 mg/3 mL) pen injector 1.8 mg SUBCUT DAILY 0RF telmisartan-hydrochlorothiazid 80-25 mg tablet 1 tab PO DAILY 0RF Follow up/Referrals: Josephine Rubio MD [Primary Care Provider] - Diet/Activity/Treatments Diet: Regular Visit Report/Discharge Packet Instructions: Dehydration, DI for Dehydration -- Adult Discharge Data Primary Care Provider: Josephine Rubio Quality VTE Deep Vein Thrombosis/Pulmonary Embolism Present on Admission: No
[2022-02-17 07:36] LABS: H. Pylori Antigen Stool Negative (Negative)
== END 2022-02-15 11:00 | disposition home or self-care (01) | DRG 683 ==
LOC: ED 14:43 → AC 18:42
PROVIDERS: Nurse Practitioner Family; Admitting Provider Internal Medicine; Emergency Provider Emergency Medicine; PCP Internal Medicine; Referring Provider Emergency Medicine; Visit Provider Internal Medicine
DX: N17.9 Acute kidney failure, unspecified (principal); Z68.41 Body mass index [BMI] 40.0-44.9, adult; K52.9 Noninfective gastroenteritis and colitis, unspecified; E86.0 Dehydration; D72.10 Eosinophilia, unspecified; D69.6 Thrombocytopenia, unspecified; E66.01 Morbid (severe) obesity due to excess calories; E11.65 Type 2 diabetes mellitus with hyperglycemia; I10 Essential (primary) hypertension; E78.5 Hyperlipidemia, unspecified; G47.33 Obstructive sleep apnea (adult) (pediatric); E03.9 Hypothyroidism, unspecified; Z79.4 Long term (current) use of insulin; Z87.891 Personal history of nicotine dependence; Z79.84 Long term (current) use of oral hypoglycemic drugs; Z20.822 Contact with and (suspected) exposure to COVID-19
CPT/HCPCS: 36415; 74022; 76770; 80048; 80053; 80076; 82570; 82962; 83036; 83605; 83690; 83735; 84145; 84300; 84439; 84443; 85007; 85025; 85610; 85730; 87338; 87507; 87635; 93005; 93010; 94760; 96361; 96374; 96375; 99284; C9803; C9113; J1650; J1815; J2405

== ENCOUNTER 2024-10-13 09:05 | Emergency (ER) | payer MEDICARE, OTHER, SELFPAY ==
[2022-02-13 20:53] VITALS: BMI 41.0
[2024-10-13 09:08] VITALS: BP 185/65; PULSE 80; O2SAT 98
[2024-10-13 09:11] VITALS: BP 185/65; PULSE 79; RESP 18; TEMP 36.9; O2SAT 98; BMI 68.6
--- NOTE | 2024-10-13 09:11 | EKG_ITS ---
[address] [id number] [address] [address] Test Date: 2024-10-13 Pat Name: Berhane Dougherty Department: Room: Gender: Male Social Media Content Manager: CALVIN : 1955 Requested By: Order Number: [id number] Reading MD: Wicho Lane Measurements Intervals [place] Rate: 71 P: 33 NC: 184 QRS: 20 QRSD: 102 T: 40 QT: 404 QTc: 439 Interpretive Statements Normal sinus rhythm Electronically Signed On 10-13-2024 18:21:[address]
[2024-10-13 09:26] LABS: Add Manual Diff / Slide Review NO; Basophils Absolute Auto 100 /uL (0-100); Basophils Percent Auto 1.2 % (0-2); Eosinophils Absolute Auto 200 /uL (0-450); Hematocrit 31.7 % (41-53); Hemoglobin 10.2 g/dL (13.5-17.5); Lymphocytes Absolute Auto 800 /uL (1100-4500); Lymphocytes Percent Auto 17.8 % (25-40); Mean Corpuscular HGB Conc 32.1 % (30-36); Mean Corpuscular Hemoglobin 29.4 PG (26-34); Mean Corpuscular Volume 91.7 fL (80-100); Monocytes Absolute Auto 500 /uL (0-900); Monocytes Percent Auto 10.6 % (3-14); Neutrophils Absolute Auto 3000 /uL (1500-7000); Neutrophils Percent Auto 65.4 % (50-75); Platelet Count 98 X10^3/uL (150-400); Red Blood Cell Count 3.46 X10^6/uL (4.5-5.9); Red Cell Distribution Width 16.1 % (11.6-14.8); White Blood Cell Count 4.6 X10^3/uL (4.5-11.0)
[2024-10-13 09:30] VITALS: PULSE 65; RESP 15; O2SAT 97
[2024-10-13 09:31] VITALS: BP 118/55; PULSE 66; RESP 16; O2SAT 96
[2024-10-13 09:36] LABS: Alanine Aminotransferase 34 IU/L (<50); Albumin 3.8 g/dL (3.5-5.0); Albumin Globulin Ratio 1.1 (1.0-2.8); Alkaline Phosphatase 104 U/L (38-126); Aspartate Aminotransferase 50 IU/L (17-59); BUN Creatinine Ratio 24.2 (6-22); Bilirubin Total 0.9 mg/dL (0.2-1.3); Blood Urea Nitrogen 46 mg/dL (9-20); Calcium 9.3 mg/dL (8.4-10.2); Carbon Dioxide 22 mmol/L (22-32); Chloride 109 mmol/L (98-107); Creatine Kinase 43 U/L (55-170); Estimated Glomerular Filt Rate 37 mL/min (>60); Globulin 3.4 g/dL (1.7-4.1); Glucose 152 mg/dL (80-110); HEMOLYSIS < 15 (0-50); Lipase 588 U/L (23-300); Magnesium 1.8 mg/dL (1.6-2.3); Potassium 4.8 mmol/L (3.4-5.1); Sodium 141 mmol/L (137-145); Total Protein 7.2 g/dL (6.3-8.2)
[2024-10-13 09:48] LABS: Troponin I 0.021 ng/mL (0.01-0.034)
--- NOTE | 2024-10-13 09:53 | ED.GENADULT ---
HPI - General Adult General Chief complaint: Dizziness Stated complaint: low bp, dizziness Time Seen by Provider: 10/13/24 09:06 Source: patient Mode of arrival: Ambulatory History of Present Illness HPI narrative: Patient is a 69-year-old male. Has not insulin-dependent diabetic. Also has a history of high blood pressure. Has not had any changes to his blood pressure medicine recently. He takes his medicine around noon. He states he woke up this morning. [place] somewhat off and felt the beginnings of like he was going to pass out. No chest pain. No shortness of breath. No palpitations. He checked his blood pressure and the systolic blood pressure was in the 80s. He did not check his blood sugar. He did not take an extra dose of his blood pressure medicines. Because of how he was feeling in his blood pressure he decided to come to be evaluated. He currently is asymptomatic. Related Data Home Medications Medication Instructions Recorded Confirmed Cranberry/D-Mannose 1 tab PO DAILY 06/05/18 02/13/22 insulin glargine 100 unit/mL (3 80 unit SUBCUT DAILY 06/05/18 02/15/22 mL) subcutaneous pen (Lantus Solostar U-100 Insulin) levothyroxine 175 mcg tablet 175 mcg PO DAILY 06/05/18 02/13/22 (Synthroid) metformin 1,000 mg tablet 1,000 mg PO BID 06/05/18 02/13/22 telmisartan 80 1 tab PO DAILY 11/11/18 02/13/22 mg-hydrochlorothiazide 25 mg tablet liraglutide 0.6 mg/0.1 mL (18 mg/3 1.8 mg SUBCUT DAILY 02/13/22 02/13/22 mL) subcutaneous pen injector (Victoza 3-Sung) rosuvastatin 20 mg tablet 20 mg PO DAILY 02/13/22 02/13/22 Previous Rx's Medication Instructions Recorded ferrous sulfate 325 mg (65 mg 325 mg PO DAILY #60 tabs 06/08/18 iron) tablet Allergies Allergy/AdvReac Type Severity Reaction Status Date / Time No Known Drug Allergies Allergy Verified 06/05/18 14:02 Review of Systems Review of Systems ROS Unobtainable: All systems reviewed & are unremarkable except as noted in HPI and below Patient History Medical History Sleep apnea Hepatic steatosis Splenomegaly Gastrointestinal hemorrhage with melena Morbid obesity Osteoarthritis Personal history of colonic polyps 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 Symptomatic anemia Hypothyroid Diabetes Surgical History H/O transurethral destruction of bladder lesion History of bone marrow biopsy History of colonoscopy History of esophagogastroduodenoscopy (EGD) Hx of appendectomy Social History household members: none Smoking Status: Former smoker alcohol intake: current Smoking Status: Former smoker alcohol intake frequency: holidays/special occasions only Exam Initial Vital Signs Initial Vital Signs: Vital Signs Pulse Rate 80 10/13/24 09:08 Blood Pressure 185/65 H 10/13/24 09:08 Pulse Oximetry 98 10/13/24 09:08 Const General: cooperative, comfortable and No ill appearing HENMT Head: normal to inspection and normocephalic Resp Effort & Inspection: normal respiratory effort Auscultation: clear to auscultation bilaterally Cardio Rate: regular rate Rhythm: regular rhythm GI Inspection: normal to inspection Skin General: no rashes or lesions noted Neuro General: patient alert, patient awake, patient oriented x3 and moves all extremities Course Orders Ordered: ED Orders 10/13/24 09:07 EKG-12 Lead Stat 10/13/24 09:15 Complete Blood Count AUTO DIFF Stat Comprehensive Metabolic Panel Stat Lipase Stat Magnesium Stat Troponin & CK Cardiac Panel Stat Vital Signs Vital signs: Vital Signs - 8 hr 10/13/24 09:08 10/13/24 09:08 10/13/24 09:11 Temperature 98.4 F Pulse Rate 80 79 Respiratory Rate 18 Blood Pressure 185/65 H 185/65 H Pulse Oximetry 98 98 Oxygen Delivery Method Room Air Medical Decision Making Lab Data Lab results reviewed: Yes I reviewed the patient's lab results. 10/13/24 09:15 10/13/24 09:15 Labs: Lab Results 10/13/24 Range/Units 09:15 WBC 4.6 (4.5-11.0) X10^3/uL RBC 3.46 L (4.5-5.9) X10^6/uL Hgb 10.2 L (13.5-17.5) g/dL Hct 31.7 L (41-53) % MCV 91.7 (80-100) fL MCH 29.4 (26-34) PG MCHC 32.1 (30-36) % RDW 16.1 H (11.6-14.8) % Plt Count 98 L (150-400) X10^3/uL Neut % (Auto) 65.4 (50-75) % Lymph % (Auto) 17.8 L (25-40) % [place] % (Auto) 10.6 (3-14) % Eos % (Auto) 5.0 H (2-4) % Baso % (Auto) 1.2 (0-2) % Neut # (Auto) 3000 (0779-0233) /uL Lymph # (Auto) 800 L (9830-9872) /uL [place] # (Auto) 500 (0-900) /uL Eos # (Auto) 200 (0-450) /uL Baso # (Auto) 100 (0-100) /uL Sodium 141 (137-145) mmol/L Potassium 4.8 (3.4-5.1) mmol/L Chloride 109 H (98-107) mmol/L Carbon Dioxide 22 (22-32) mmol/L BUN 46 H (9-20) mg/dL Creatinine 1.90 H (0.66-1.25) mg/dL Estimated GFR 37 L (>60) mL/min BUN/Creatinine Ratio 24.2 H (6-22) Glucose 152 H (80-110) mg/dL Calcium 9.3 (8.4-10.2) mg/dL Magnesium 1.8 (1.6-2.3) mg/dL Total Bilirubin 0.9 (0.2-1.3) mg/dL AST 50 (17-59) IU/L ALT 34 (<50) IU/L Alkaline Phosphatase 104 (38-126) U/L Total Creatine Kinase 43 L (55-170) U/L Troponin I 0.021 (0.01-0.034) ng/mL Total Protein 7.2 (6.3-8.2) g/dL Albumin 3.8 (3.5-5.0) g/dL Globulin 3.4 (1.7-4.1) g/dL Albumin/Globulin Ratio 1.1 (1.0-2.8) Lipase 588 H (23-300) U/L ECG Data Attestation: I personally reviewed and interpreted this ECG as follows: Interpretation: Sinus rhythm Ventricular rate is 71 Normal axis Normal QRS Normal QTC No ST T wave changes MDM Narrative Medical decision making narrative: Patient was currently asymptomatic. His blood pressure is unremarkable. Sinus rhythm on his EKG. Labs are unremarkable as well. We did discuss the importance of continuing to take his blood pressure at home. Discussed the importance of checking his blood sugar at home as well. I have low suspicion for ACS, TIA, CVA. Patient ambulates without issue. Will discharge home without any changes to his medicines. He was given return precautions. He expressed understanding and agreement. Discharge Plan Departure Patient Disposition: Home Clinical Impression: Pre-syncope Instructions: DI for Dizziness-Nonvertigo Activity Restrictions/Additional Instructions: Recommend that you continue to take all of your medications as directed. Continue to take your blood pressure at home like we discussed. I would recommend that you check your blood sugar at home on a regular basis as well. Return to the emergency department for new or worsening symptoms. Prescriptions: No Action levothyroxine [Synthroid] 175 mcg Tablet 175 mcg PO DAILY metformin 1,000 mg Tablet 1,000 mg PO BID Lantus Solostar U-100 Insulin 100 unit/mL (3 mL) Insulin Pen 80 unit SUB-Q DAILY Cranberry/D-Mannose 1 tab PO DAILY ferrous sulfate 325 mg (65 mg iron) Tablet 325 mg PO DAILY Qty: 60 0RF rosuvastatin 20 mg tablet 20 mg PO DAILY Victoza 3-Sung 0.6 mg/0.1 mL (18 mg/3 mL) pen injector 1.8 mg SUBCUT DAILY telmisartan-hydrochlorothiazid 80-25 mg tablet 1 tab PO DAILY Referrals: Josephine Rubio MD [Primary Care Provider] - Stand Alone Forms: Patient Portal/API/Survey
== END 2024-10-13 10:03 | disposition home or self-care (01) ==
PROVIDERS: Emergency Provider Emergency Medicine; PCP Internal Medicine
DX: R55 Syncope and collapse (principal); E11.9 Type 2 diabetes mellitus without complications; Z79.4 Long term (current) use of insulin; Z79.84 Long term (current) use of oral hypoglycemic drugs
CPT/HCPCS: 36415; 80053; 82550; 83690; 83735; 84484; 85025; 93005; 99283; 99284